=== PATIENT | male | born 1965 | race Caucasian/White ===

== ENCOUNTER 2018-08-15 20:12 | Inpatient (IN) | payer MEDICAID, OTHER ==
[~2018-08-15] VITALS: Ht 152.4 cm; Wt 96.4 kg
[~2018-08-15 20:12] MED LIST: ADV500INH INH; ALBU17IN INH; ASPI-1 PO; FURO40TA2 PO; LISI-1046 PO; SIMV20TA2 PO; SYNT25TA PO; TIOT18INH INH; TOPA50TA8 PO; VICT18IN SC; ZETI10TA30 PO
[2018-08-15] MEDS ORDERED: NOREPINEPHRINE 4 MG/4 ML AMP As Ordered ONE (21:51)
[2018-08-15 21:57] VITALS: BP 159/73
[2018-08-15 22:00] VITALS: O2SAT 88
[2018-08-15] MEDS ORDERED: NOREPINEPHRINE BITARTRATE 8 MG in D5W 492 ML IV SCH (22:00)
[2018-08-15 22:14] VITALS: BP 143/65
[2018-08-15 22:30] VITALS: BP 151/82
[2018-08-15] MEDS ORDERED: INCR1INH INH (22:38)
[2018-08-15] MEDS ORDERED: AIRD1INH2 INH (22:38)
[2018-08-15] MEDS ORDERED: LEVO25TA5 PO (22:38)
[2018-08-15] MEDS ORDERED: PACE200T PO (22:38)
[2018-08-15] MEDS ORDERED: ALBU83IN INH (22:38)
[2018-08-15] MEDS ORDERED: TORS20TA2 PO (22:38)
[2018-08-15] MEDS ORDERED: CARV3.12 PO (22:38)
[2018-08-15] MEDS ORDERED: ASPI81TA26 PO (22:38)
[2018-08-15] MEDS ORDERED: ATOR1TAB21 PO (22:38)
[2018-08-15] MEDS ORDERED: LISI-1046 PO (22:38)
[2018-08-15] MEDS ORDERED: VENTAER INH (22:38)
[2018-08-15] MEDS ORDERED: TOPI50TA9 PO (22:38)
[2018-08-15 22:45] LABS: BASO % 0.2 % (0.0-1.0); HEMATOCRIT 45.5 % (42.0-52.0); HEMOGLOBIN 13.8 g/dl (13.5-17.5); LYMPH # 0.4 10^3/uL (1.5-4.5); LYMPH % 3.9 % (24.0-44.0); MEAN CORPUSCULAR HEMOGLOBIN 26.6 pg (27.0-33.0); MEAN CORPUSCULAR HGB CONC 30.3 g/dl (32.0-36.5); MEAN CORPUSCULAR VOLUME 87.7 fl (80.0-96.0); MONO # 0.7 10^3/uL (0.0-0.8); MONO % 6.5 % (0.0-5.0); NEUTROPHILS # 9.9 10^3/uL (1.8-7.7); NEUTROPHILS % 88.5 % (36.0-66.0); PLATELET COUNT, AUTOMATED 271 10^3/uL (150-450); RED BLOOD COUNT 5.19 10^6/uL (4.30-6.10); WHITE BLOOD COUNT 11.2 10^3/uL (4.0-10.0)
[2018-08-15] MEDS ORDERED: VITA10002 PO (22:46)
--- NOTE | 2018-08-15 22:52 | HPEPDOC ---
General Date of Admission August 15, 2018 at 21:45 Chief Complaint The patient is a 53-year-old male admitted with a reason for visit of Acute Res piratory Failure. Source: RN/, Old records History of Present Illness Mr. Tijerina is a 53 years old man with severe cardiomyopathy with EF 15% as of 2014, s/p pacemaker/AICD. I spoke with Dr. Solis who gave me report on the patient. Pt presented to [facility] ER today with c/o SOB. Apparently the pt was not feeling well for the past couple of week. In the ER, pt was in severe respiratory distress; he had respiratory arrest/ cardiac arrest; required CPR for one minute and received Epi. He was intubated. He was given Rocephin, Zithromax and Vanco for presumed dx of pneumonia-related ARDS. On arrival to ICU here, pt was unresponsive; hemodynamically stable. STAT CXR showed pulmonary edema and significant cardiomegaly. A STAT Echo showed EF 10%, LV size 8.5cm (2014 echo EF 15%, LV size 7.2cm). Hx is not very clear. In June 2014 he was admitted here for CHF, and transferred to [facility] for AICD placement. Limited info obtained from pt's cousin who reports pt having exercise limitation, but otherwise fairly functional, such as able to take care of himself, do grocery and perform daily chores. Pt lives in [facility]. Unsure who pt follows with for his cardiac problem. Home Medications Scheduled Amiodarone Hcl (Pacerone) 200 Mg Tablet, 200 MG PO DAILY, (Reported) Aspirin (Aspirin EC) 81 Mg Tablet.dr, 81 MG PO DAILY, (Reported) Atorvastatin Calcium (Atorvastatin Calcium) 20 Mg Tablet, 20 MG PO DAILY, (Reported) Carvedilol (Carvedilol) 3.125 Mg Tablet, 3.125 MG PO BID, (Reported) Cyanocobalamin (Vitamin B-12) (Vitamin B-12) 1,000 Mcg Tablet, 1,000 MCG PO DAILY, (Reported) Fluticasone Propion/Salmeterol (Airduo Respiclick 113-14 Mcg) 1 Each Aer.pow.ba, 1 PUFF INH BID, (Reported) Levothyroxine Sodium (Levothyroxine Sodium) 25 Mcg Tablet, 25 MCG PO DAILY, ( Reported) Lisinopril (Lisinopril) 2.5 Mg Tablet, 2.5 MG PO DAILY, (Reported) Topiramate (Topiramate) 50 Mg Tablet, 50 MG PO BID, (Reported) Torsemide (Torsemide) 20 Mg Tablet, 20 MG PO DAILY, (Reported) Umeclidinium [place] (Incruse Ellipta) 62.5 Mcg Blst.w.dev, 1 PUFF INH DAILY, (Reported) Scheduled PRN Albuterol Sulf (Albuterol Sulfate) 2.5 Mg/3 Ml Vial.neb, 2.5 MG INH Q4H PRN for SHORTNESS OF BREATH, (Reported) Albuterol Sulfate (Ventolin Hfa) 18 Gm Hfa.aer.ad, 2 PUFF INH Q4H PRN for wheezing, (Reported) Allergies Coded Allergies: No Known Allergies (Unverified , 04/20/14) Past Medical History Medical History 1. Severe Dilated Cardiomyopathy, Systolic Heart Failure, EF 15-20% as of echo from 2014, s/p AICD, Pacemaker 2. DM (?) 3. COPD 4. PVD 5. Hypothyroidism 6. HLD 7. Morbid Obesity 8. Diverticulitis Surgical History Right eye cataract surgery, Colonoscopy, Cardiac Cath, Pacemaker/AICD placement Family History Significant Family History: Cancer, Diabetes, Heart disease (CHF) Social History * Smoker: former Smoker Alcohol: Denies Drugs: denies A-FIB/CHADSVASC A-FIB History Current/History of A-Fib/PAF?: No Review of Systems Other systems Unable to obtain because pt is intubated and sedated Physical Examination General Exam: Positive: Other (unresposnive to pain; no gag reflex) Eye Exam: Positive: PERRLA ENT Exam: Positive: Atraumatic Neck Exam: Positive: Supple Chest Exam: Positive: Rales (diffuse) Heart Exam: Positive: Rate Normal, Regular Rhythm, Other (pouding heart beat) Telemetry: Positive: Other Telemetry: (paced rhythm) Abdomen Exam: Positive: Normal bowel sounds, Soft Extremity Exam: Positive: Edema (1+ edema on both legs), Normal pulses Skin Exam: Negative: Rash, Breakdown Vital Signs Vital Signs Date Time Temp Pulse Resp B/P (MAP) Pulse Ox O2 Delivery O2 Flow Rate FiO2 08/15/18 22:30 92 16 151/82 (105) 86 95.0 08/15/18 22:14 95 08/15/18 21:57 96.4 Laboratory Data Labs 24H Laboratory Tests 2 08/15/18 22:37: Immature Granulocyte % (Auto) 0.9, White Blood Count 11.2H, Red Blood Count 5.19, Hemoglobin 13.8, Hematocrit 45.5, Mean Corpuscular Volume 87.7, Mean Corpuscular Hemoglobin 26.6L, Mean Corpuscular Hemoglobin Concent 30.3L, Red Cell Distribution Width 14.5, Platelet Count 271, Neutrophils (%) (Auto) 88.5H, Lymphocytes (%) (Auto) 3.9L, Monocytes (%) (Auto) 6.5H, Eosinophils (%) (Auto) 0.0, Basophils (%) (Auto) 0.2, Neutrophils # (Auto) 9.9H, Lymphocytes # (Auto) 0.4L, Monocytes # (Auto) 0.7, Eosinophils # (Auto) 0.0, Basophils # (Auto) 0.0, Nucleated Red Blood Cells % (auto) 0.0 08/15/18 22:39: CBC/BMP Laboratory Tests 08/15/18 22:37 Red Blood Count 5.19, Mean Corpuscular Volume 87.7, Mean Corpuscular Hemoglobin 26.6 L, Mean Corpuscular Hemoglobin Concent 30.3 L, Red Cell Distribution Width 14.5, Neutrophils (%) (Auto) 88.5 H, Lymphocytes (%) (Auto) 3.9 L, Monocytes (%) (Auto) 6.5 H, Eosinophils (%) (Auto) 0.0, Basophils (%) (Auto) 0.2, Neutrophils # (Auto) 9.9 H, Lymphocytes # (Auto) 0.4 L, Monocytes # (Auto) 0.7, Eosinophils # (Auto) 0.0, Basophils # (Auto) 0.0 Microbiology Microbiology 08/15/18 Respiratory Virus Panel (PCR) ([facility]), Received Pending Assessment/Plan Decompensated Heart failure with severe Pulmonary Edema, Underlying Severe Dilated Cardiomyopathy, Severe Systolic Dysfunction EF 10%, Acute Hypoxic and Hypercapnic Respiratory Failure, Respiratory Acidosis - Admit to ICU - Media Assistant Dr. Gonzales and Cardiology Dr. Raymond Consults; Discussed with both - IV Lasix, IV Dobutamine low dose; Continue home meds: Coreg and Amiodarone - Lung protective ventilator - Monitor I/O, daily wt, multi-organ function - Trend troponins r/o AMI COPD - Vent support; nebs prn Hypothyroidism - home dose of synthroid Questionable hx/o DM, previously recorder in the chart, not on med at home, HbA1C 5.4 - Monitor blood sugar At 6:30 am pt remains unresponsive; likely due to hypoxic brain injury. Aggressive cardiac care alone may not be very helpful if neuro status doesn't improve. Plan / VTE VTE Prophylaxis Ordered?: Yes DEEPIKA GATES MD August 15, 2018 22:52
[2018-08-15] MEDS ORDERED: PROPOFOL 1,000 MG in APPROPRIATE DILUENT 1 EA IV SCH (22:55)
[2018-08-15 22:56] LABS: INR 1.11; PARTIAL THROMBOPLASTIN TIME 31.5 SECONDS (25.4-37.6); PROTHROMBIN TIME 14.4 SECONDS (12.1-14.4)
[2018-08-15 23:00] VITALS: BP 149/71
[2018-08-15] MEDS ORDERED: MORPHINE 4 MG/ML 1ML VIAL/SYRINGE (J2270) IV PRN (23:00)
[2018-08-15] MEDS ORDERED: ALBUTEROL SULFATE 2.5 MG/0.5 ML INH NEB SOLN NEB PRN (23:00)
[2018-08-15] MEDS ORDERED: LORazepam 2 MG/ML VIAL (J2060) IV PRN (23:00)
[2018-08-15 23:04] LABS: HEMOGLOBIN A1c 5.4 %
[2018-08-15 23:11] LABS: ALBUMIN 3.3 GM/DL (3.2-5.2); ALT/SGPT 67 U/L (12-78); BILIRUBIN,TOTAL 0.8 MG/DL (0.2-1.0); BLOOD UREA NITROGEN 19 MG/DL (7-18); CALCIUM LEVEL 7.5 MG/DL (8.5-10.1); CARBON DIOXIDE LEVEL 27 MEQ/L (21-32); CHLORIDE LEVEL 108 MEQ/L (98-107); CPK CREATINE PHOSPHOKINASE 95 U/L (39-308); CREATININE FOR GFR 1.11 MG/DL (0.70-1.30); GLOMERULAR FILTRATION RATE > 60.0 (>56); GLUCOSE, FASTING 199 MG/DL (70-100); MB/CK RELATIVE INDEX 2.84 (< OR =4); NT-PRO BNP 12711 PG/ML (<125); POTASSIUM SERUM 3.3 MEQ/L (3.5-5.1); SODIUM LEVEL 141 MEQ/L (136-145); TROPONIN I 0.13 NG/ML (< 0.10)
[2018-08-15 23:13] LABS: ABG BASE EXCESS -6.8 (-2.0-2.0); ABG HCO3 24.5 MEQ/L (22.0-26.0); ABG O2 SATURATION 90.5 % (95.0-99.0); ABG PARTIAL PRESSURE O2 75.2 mmHg (75.0-100.0); ABG STANDARD HCO3 18.9 MEQ/L (22.0-26.0); ABG TOTAL CO2 26.9 MEQ/L (22.0-29.0)
[2018-08-15 23:15] LABS: ABG pH (ARTERIAL) 7.112 UNITS (7.350-7.450)
[2018-08-15] MEDS ORDERED: ALBUTEROL 90 MCG/ACT 8GM HFA INHALER INH PRN (23:15)
[2018-08-15] MEDS ORDERED: ASPIRIN 325 MG TAB NG ONE (23:15)
[2018-08-15 23:16] LABS: ABG PARTIAL PRESSURE CO2 78.6 mmHg (35.0-45.0)
[2018-08-15 23:18] LABS: ALBUMIN 3.3 GM/DL (3.2-5.2); BILIRUBIN,DIRECT 0.3 MG/DL (0.0-0.2); BILIRUBIN,TOTAL 0.8 MG/DL (0.2-1.0); CHOLESTEROL RISK RATIO 1.796 (<5); THYROID STIMULATING HORMONE 2.24 uIU/ML (0.358-3.740); TOTAL PROTEIN 6.7 GM/DL (6.4-8.2)
[2018-08-15] MEDS ORDERED: DOBUTamine HCL 500,000 MCG in APPROPRIATE DILUENT 1 EA IV SCH (23:30)
[2018-08-15] MEDS ORDERED: MIDAZOLAM INJ 2 MG/2 ML VIAL (J2250) IV STA (23:50)
[2018-08-15] MEDS ORDERED: MIDAZOLAM INJ 2 MG/2 ML VIAL (J2250) As Ordered ONE (23:52)
[2018-08-16] VITALS (153 sets, daily range): BP systolic -2–134; BP diastolic -2–67; O2SAT 90–96
[2018-08-16] MEDS ORDERED: FUROSEMIDE 100 MG/10 ML VIAL (J1940) IV SCH
[2018-08-16] MEDS: FUROSEMIDE injection 250 MG in D5W 225 ML IV SCH ×2 (00:01→12:57)
[2018-08-16] MEDS ORDERED: MIDAZOLAM HCL 50 MG in D5W 40 ML IV SCH (00:15)
[2018-08-16] MEDS ORDERED: POTASSIUM CHLORIDE 10 MEQ SR TABLET PO ONE (00:15)
[2018-08-16] MEDS: IPRATROPIUM 0.5MG/ALBUTEROL 2.5MG INH SOL UD 3ML (DUONEB)(J7620) NEB SCH ×4 (00:25→13:11)
[2018-08-16 01:15] LABS: ABG BASE EXCESS -6.5 (-2.0-2.0); ABG HCO3 23.7 MEQ/L (22.0-26.0); ABG O2 SATURATION 93.1 % (95.0-99.0); ABG PARTIAL PRESSURE O2 80.7 mmHg (75.0-100.0); ABG STANDARD HCO3 19.1 MEQ/L (22.0-26.0); ABG TOTAL CO2 25.8 MEQ/L (22.0-29.0)
[2018-08-16 01:17] LABS: ABG PARTIAL PRESSURE CO2 68.4 mmHg (35.0-45.0); ABG pH (ARTERIAL) 7.157 UNITS (7.350-7.450)
[2018-08-16 05:12] LABS: ALBUMIN 3.2 GM/DL (3.2-5.2); ALT/SGPT 62 U/L (12-78); BILIRUBIN,TOTAL 0.9 MG/DL (0.2-1.0); BLOOD UREA NITROGEN 20 MG/DL (7-18); CALCIUM LEVEL 7.9 MG/DL (8.5-10.1); CARBON DIOXIDE LEVEL 28 MEQ/L (21-32); CHLORIDE LEVEL 108 MEQ/L (98-107); CHOLESTEROL LEVEL 108 MG/DL (< 200); CPK CREATINE PHOSPHOKINASE 68 U/L (39-308); CREATININE FOR GFR 1.25 MG/DL (0.70-1.30); GLOMERULAR FILTRATION RATE > 60.0 (>56); GLUCOSE, FASTING 166 MG/DL (70-100); LDH LACTATE DEHYDROGENASE 300 U/L (87-241); PHOSPHORUS LEVEL 5.3 MG/DL (2.5-4.9); POTASSIUM SERUM 3.6 MEQ/L (3.5-5.1); SODIUM LEVEL 143 MEQ/L (136-145); TOTAL PROTEIN 7.1 GM/DL (6.4-8.2); TRIGLYCERIDES LEVEL 61 MG/DL (<150)
[2018-08-16 06:11] LABS: ABG BASE EXCESS -5.8 (-2.0-2.0); ABG HCO3 24.8 MEQ/L (22.0-26.0); ABG O2 SATURATION 96.2 % (95.0-99.0); ABG PARTIAL PRESSURE O2 97.2 mmHg (75.0-100.0); ABG STANDARD HCO3 19.7 MEQ/L (22.0-26.0); ABG TOTAL CO2 27.1 MEQ/L (22.0-29.0)
[2018-08-16 06:13] LABS: ABG pH (ARTERIAL) 7.146 UNITS (7.350-7.450)
[2018-08-16 06:14] LABS: ABG PARTIAL PRESSURE CO2 73.6 mmHg (35.0-45.0)
[2018-08-16 06:47] LABS: MB/CK RELATIVE INDEX 4.12 (< OR =4)
--- NOTE | 2018-08-16 06:47 | ECHO ---
DATE OF PROCEDURE: 08/15/2018 REFERRING PHYSICIAN: Gamal Gonzales MD INDICATION: Status post cardiac arrest. HEIGHT: 4 feet 11 inches. WEIGHT: 209 pounds, 7 ounces. 2D MEASUREMENTS: Aortic root 3.4 cm Left ventricle diastole 8.5 cm Ventricular septum 1.19 cm Posterior wall 1.20 cm Left atrium 4.6 cm Inferior vena cava 2.0 cm with essentially no respiratory variation. DOPPLER MEASUREMENTS: Aortic valve velocity 248 cm/s LVOT velocity 118 cm/s LVOT VTI 25.8 cm No aortic regurgitation. No mitral regurgitation. No tricuspid regurgitation. No pulmonic regurgitation. Pulmonary artery systolic pressure 39 mmHg. MITRAL ANNULAR TISSUE DOPPLER: E prime lateral 3.68 cm/s E prime septal 6.74 cm/s DESCRIPTION: Rhythm appeared to be sinus, P-synchronous ventricular paced rhythm. Image quality was moderately technically difficult. This was a 2D, M mode, color flow Doppler and pulse wave Doppler examination, and included mitral annular tissue Doppler. CONCLUSIONS: 1. Severely dilated left ventricle with left ventricular wall thicknesses at or near the upper limits of normal. Severe global LV hypokinesis. Severe reduction in LV systolic function. LVEF 10% by visual estimate. 2. Probably normal right ventricle size and systolic function. 3. Moderate left atrial dilatation. 4. Difficult to assess LV diastolic function due to complete fusion of the early rapid filling phase and atrial filling phase at 96 beats per minute. 5. Moderate aortic valve sclerosis of a three-cuspid aortic valve. Probably mild aortic stenosis. No aortic regurgitation. 6. Suggestive of mild elevation of pulmonary artery systolic pressure. 7. Inferior vena cava plethora. Suggestive of elevated central venous pressure at least 20 mmHg. 8. Very small pericardial effusion. No diastolic chamber collapse. 9. Mild mitral annular calcification. No mitral regurgitation. Results of this study were communicated verbally to Dr. Gianna Gonzales. [facility]
[2018-08-16] MEDS ORDERED: ADVAIR HFA 230/21MCG INHALER INH SCH (08:00)
--- NOTE | 2018-08-16 08:09 | REP ---
Portable chest x-ray: Single view. History: Intubated patient. Comparison study: August 15, 2018. Findings: Endotracheal tube is seen in good position at the level of proximal clavicles. An NG tube enters left upper quadrant. A delayed pacemaker is noted in the right heart via the left side. Moderate cardiomegaly is again observed. Pulmonary edema pattern shows some improvement. Interstitial edema persists and vascular congestion is again noted. The vessels are a little more distinct. There is less fissural thickening. Impression: Some improvement noted and interstitial pulmonary edema pattern. Cardiomegaly with pacemaker. Electronically Signed by Hugh Escobar MD 08/16/2018 08:00 A
--- NOTE | 2018-08-16 08:21 | REP ---
CT STUDY OF THE BRAIN WITHOUT CONTRAST: HISTORY: Unresponsiveness. No comparison study. FINDINGS: Preliminary digital chief lending officer radiograph is unremarkable. Bone window settings demonstrate an intact bony calvarium. No skull fracture or bony destructive lesion is seen. There are air-fluid levels in the right maxillary and sphenoid sinuses. Partial opacification is seen in several ethmoid air cells. No facial fracture is appreciated. No intraorbital abnormality is seen. On soft tissue window settings, the lateral, third, and fourth ventricles are normal in size and position. Galeana-white differentiation pattern is intact above and below the tentorium. There is no evidence of intracranial hemorrhage, infarct, mass, extra-axial fluid collection, or midline shift. IMPRESSION: Paranasal sinus changes with some fluid levels in the sphenoid and right maxillary sinus. Otherwise negative CT brain. Electronically Signed by Hugh Escobar MD 08/16/2018 09:51 A
--- NOTE | 2018-08-16 08:31 | REP ---
Portable chest x-ray: Single view 10:46 p.m. film: History: Recheck tube after reintubation. Comparison study June 15, 2014. Findings: Endotracheal tube is seen in good position just above the transverse aorta. An NG tube enters left upper quadrant of the abdomen. A multi lead pacemaker is seen in the heart via the left side. Moderate to marked cardiomegaly is observed. There is some fissural thickening noted on the right. Eight moderate diffuse interstitial and alveolar pulmonary edema pattern is seen in the lung parenchyma. Electronically Signed by Hugh Escobar MD 08/16/2018 08:22 A
--- NOTE | 2018-08-16 08:38 | REP ---
PORTABLE CHEST X-RAY: Single view. HISTORY: Intubation patient. COMPARISON STUDY: June 15, 2014. FINDINGS: Endotracheal tube is seen in good position just below the proximal clavicles. An NG tube enters left upper quadrant. A multi-lead pacemaker is again noted in the enlarged heart via the left side. There is diffuse interstitial and alveolar pulmonary edema pattern moderate to severe. Parenchymal opacity is more prominent on the right than the left. No pleural effusion is seen. IMPRESSION: Diffuse pulmonary edema pattern. Cardiomegaly. Endotracheal and nasogastric tubes in place. Electronically Signed by Hugh Escobar MD 08/16/2018 09:51 A
[2018-08-16] MEDS ORDERED: NOREPINEPHRINE 4 MG/4 ML AMP As Ordered ONE (08:44)
[2018-08-16] MEDS ORDERED: TOPIRAMATE (TopAMAX) 25 MG TAB PO SCH (09:00)
[2018-08-16] MEDS ORDERED: ENOXAPARIN 40 MG/0.4 ML SYRINGE (J1650) SC SCH (09:00)
[2018-08-16] MEDS ORDERED: PANTOPRAZOLE 40MG INJ (PROTONIX) (C9113) IV SCH (09:00)
[2018-08-16] MEDS ORDERED: POTASSIUM CHLORIDE 10 MEQ SR TABLET PO SCH (09:00)
[2018-08-16] MEDS ORDERED: AMIODARONE 200 MG TAB (PACERONE) PO SCH (09:00)
[2018-08-16] MEDS ORDERED: ASPIRIN 81 MG CHEW TABLET PO SCH (09:00)
[2018-08-16] MEDS ORDERED: CARVedilol 3.125 MG TAB PO SCH (09:00)
[2018-08-16] MEDS ORDERED: LEVOTHYROXINE 25MCG TABLET (0.025MG) PO SCH (09:00)
[2018-08-16] MEDS ORDERED: LISINOPRIL *2.5 MG* TAB PO SCH (09:00)
[2018-08-16] MEDS ORDERED: POTASSIUM CHLORIDE 10% LIQ 20 MEQ/15 ML UDC PO SCH (09:00)
[2018-08-16] MEDS ORDERED: ATORVASTATIN 20 MG TAB PO SCH (09:00)
[2018-08-16] MEDS ORDERED: CHLORHEXIDINE GLUCONATE 0.12 % 15ML UDC (PERIDEX ORAL RINSE) MT SCH (09:00)
[2018-08-16] MEDS ORDERED: ASPIRIN 81 MG ENTERIC TAB PO SCH (09:00)
[2018-08-16 09:10] LABS: BASO % 0.2 % (0.0-1.0); HEMATOCRIT 49.1 % (42.0-52.0); HEMOGLOBIN 14.7 g/dl (13.5-17.5); LYMPH % 1.5 % (24.0-44.0); MEAN CORPUSCULAR HEMOGLOBIN 26.7 pg (27.0-33.0); MEAN CORPUSCULAR HGB CONC 29.9 g/dl (32.0-36.5); MEAN CORPUSCULAR VOLUME 89.3 fl (80.0-96.0); MONO # 0.7 10^3/uL (0.0-0.8); MONO % 4.7 % (0.0-5.0); NEUTROPHILS # 14.1 10^3/uL (1.8-7.7); NEUTROPHILS % 93.2 % (36.0-66.0); PLATELET COUNT, AUTOMATED 297 10^3/uL (150-450); WHITE BLOOD COUNT 15.1 10^3/uL (4.0-10.0)
[2018-08-16] MEDS ORDERED: PILL CRUSHER/CUTTER 1 EACH XX PRN (09:15)
[2018-08-16 09:30] LABS: LYMPH # 0.2 10^3/uL (1.5-4.5)
--- NOTE | 2018-08-16 09:35 | CR ---
DATE OF CONSULTATION: 08/16/2018 I was asked by Dr. Cabello to emergently evaluate Mr. Tijerina for acute hypoxemic respiratory failure. Mr. iTjerina is a 53-year-old male whose past medical history is most significant for cardiomyopathy with global hypokinesia who presented to the [facility] emergency room last evening, generally feeling unwell. In talking to his cousin, who he sees at least once a week, he felt as if he may have had a cold for the past couple of weeks or so. He was getting better. His cousin notes he had a cough and nasal congestion, but he thought the nasal congestion was allergies. It is unclear as to why tonight he decided to the emergency department. Apparently when he was there he was talking to them and then suddenly went unresponsive. CPR was started and reports were that it was done for 1 minute and he was given 1 mg of epinephrine. I did not get a report on the specific rhythm, but apparently after that intervention, he had sinus rhythm with a perfusing pulse. He was intubated but it was a difficult intubation and 3-4 attempts were made. He was agitated and he was given sedation and a dose of rocuronium, reportedly 2.5 mg/kg before being transported to [facility]. He was also hypotensive and was on a Levophed drip upon arrival. I was able to pull up his [place] chest x-ray from home and he had a markedly enlarged cardiac silhouette and bilateral infiltrates consistent with pulmonary edema. Given this information, a stat echocardiogram was done on arrival, which is was dictated by Dr. Carlson, but in essence showed significant LV dilatation at 8.5 cm, global hypokinesia with an ejection fraction of 10% and a dilated SVC with a high CVP estimated around 20. When he arrived here, he had a tube leak and had likely a ruptured cuff. He therefore was reintubated over the [place] successfully. Upon reintubation, he had the anticipated pink frothy secretions. Hemodynamically he has not triggered the vent once and he does not respond to stimuli. A train of four was done and there was no response. In speaking to his cousin, he is very intelligent. His cousin feels he is very active. It is difficult to get a good idea on his true exercise tolerance. It sounds as if he may be able to walk 50 feet and then will stop to talk, but his cousin questions as to whether that may be to catch his breath. His cousin reports he can climb two flights of stairs. However, he also walks holding onto a cart when he goes through a grocery store. He also sleeps in a recliner. His cousin does not know whether he has obstructive sleep apnea (GEREMIAS). ALLERGIES: No known drug allergies. MEDICATIONS: - amiodarone 200 mg by mouth daily - aspirin 81 mg by mouth daily - atorvastatin 20 mg by mouth daily - carvedilol 3.125 mg by mouth twice a day - vitamin B12 1000 mcg by mouth daily - AirDuo RespiClick 113-14 one puff twice a day - levothyroxine 25 mcg by mouth daily - lisinopril 2.5 mg by mouth daily - topiramate 50 mg by mouth twice a day - torsemide 20 mg by mouth daily - INCRUSE one puff daily - albuterol nebulization every 4 hours as needed - albuterol HFA two puffs every 4 hours as needed PAST MEDICAL HISTORY: 1. Severely dilated cardiomyopathy, systolic heart failure with an ejection fraction (EF) of 15-20% as of echocardiogram 2015a status post dual AICD and pacemaker placed in 2015. 2. Diabetes mellitus. 3. Chronic obstructive pulmonary disease (COPD) per chart. 4. Peripheral vascular disease. 5. Hypothyroidism. 6. Dyslipidemia. 7. Morbid obesity. 8. Diverticulitis. 9. Status post right eye cataract surgery. 10. History of tobacco usage. FAMILY HISTORY: Significant for cancer, diabetes and heart disease. SOCIAL HISTORY: Mr. Tijerina does not work. 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 He lives in a retirement center. Both his parents are . He has an estranged brother, that per his cousin, he has not spoken with in over 30 years. He has no children. He previously had a smoking history, though none since 2014 and the extent of his smoking history is not known. He does not drink alcohol. No street drug usage. REVIEW OF SYSTEMS: Unobtainable secondary to intubation. What is known is contained in the HPI. PHYSICAL EXAMINATION: GENERAL: Mr. Tijerina is intubated and synchronous with the ventilator. He is not overbreathing the ventilator. VITAL SIGNS: Initial temperature 96.3, pulse 88, respiratory rate 16, blood pressure 143/65. SpO2 88% on an FiO2 of 0.95. HEENT: Anicteric, pupils 2-3 mm, PERRL. Nares: Patent bilaterally. Moist mucosa. Oropharynx ET tube and OG tube in place. NECK: Supple, trachea is midline. Unable to appreciate JVP secondary to body habitus. LYMPHS: Without cervical or supraclavicular lymphadenopathy. CHEST: Normal shape. LUNGS: Symmetric excursion, good air entry. No wheeze or rhonchi. Bilateral crackles. Normal I:E. CARDIOVASCULAR: Regular rate and rhythm with a normal S1, S2. No murmur, rub or gallop appreciated. Rhythm is paced on the monitor. ABDOMEN: Diminished bowel sounds. Soft, nondistended. No hepatosplenomegaly or masses appreciated. EXTREMITIES: Warm and well perfused. Normal capillary refill. Palpable pedal pulses bilaterally, without cyanosis. Trace pretibial edema bilaterally. NEUROLOGIC: No spontaneous movements. He is not overbreathing the ventilator. He does not withdraw to pain. LABORATORY DATA: CBC shows a hemoglobin of 13.5, hematocrit of 45.5, platelet count 271,000, white blood cell count 11,200 with a differential of 89% neutrophils, 4% lymphocytes, and 7% monocytes. Chemistries show sodium of 141, potassium 3.3, chloride 108, bicarbonate 27, anion gap 6, BUN 19, creatinine 1.1, glucose 199, hemoglobin A1c 5.4, lactic acid 1.1, calcium 7.5, magnesium 2.0, total bilirubin 0.8, direct bilirubin 0.3, AST 76, ALT 68, alkaline phosphatase 122, CK 95, CK-MB 3, troponin I 0.13, BNP 36856, total protein 6.7, albumin 3.3, triglycerides 65, total cholesterol 115, LDL 38, TSH 2.24. INR was 1.11. Arterial blood gas on [facility] with a tidal volume of 350, rate 16, PEEP of 10, and an FiO2 of 0.95 was 7.12, 79, 75.2, with a measured saturation of 91% and a base excess of -6.8. I reviewed his chest x-ray which showed a markedly enlarged cardiac silhouette, with likely normal pulmonary vascular shadows. There were diffuse infiltrates consistent with pulmonary edema. ET tube is perhaps 5 cm above the maite, but his neck is extended. IMPRESSION: 1. Acute hypoxemic respiratory failure secondary to pulmonary edema. 2. Cardiopulmonary arrest. 3. Severe cardiomyopathy with an EF of approximately 10%. 4. Diabetes mellitus per chart. 5. COPD per chart. 6. Hypothyroidism. 7. Hypertension. 8. Dyslipidemia. RECOMMENDATIONS: 1. Will continue mechanical ventilator with the lung protective strategy. His 6 mL per kilo tidal volume is 300 mL and will try to work to that level. We will also aim to keep his plateau pressure less than 30. 2. We will allow permissive hypercapnia and permissive hypoxemia. 3. Will diurese as tolerated. He is being placed on a Lasix drip. 4. I am very concerned that he is still paralyzed. I had a train of four done and he has no response. I question if he may have been given a higher dose of paralytic than was reported. We did call the emergency department to try to determine what the actual milligrams given and what was the actual number of mL given. The nurse who administered it had already left. Based on the findings, I question if he has not been inadvertently given a higher dose. With the half life, his paralytics should have long ago been worn off. If he did have an incidental high dose given it may take longer to wear off. 5. As I am concerned he is still paralyzed, I am going to place him on a Versed drip at 2 mg per hour until he shows movement by overbreathing the ventilator or spontaneous movements. At that time, I will reassess the need for the Versed rip and whether he would be better off on a different agent or an as needed sedation depending upon how he is doing. I wonder if it would be appropriate to continue the Versed drip or would it be more appropriate to change to a different agent such as Diprivan. That decision will be made at the time that he is not paralyzed. I have no other explanation for these findings. 6. We do not know a lot about his diabetes mellitus, would suggest that he be on a sliding scale insulin, particularly as the drips that he is receiving are mixed in dextrose. 7. Would consider starting dobutamine at 2.5 mg/kg per minute and would not titrate. 8. He appears to have end stage heart disease. It is difficult for me to assess his [place] state classification as I get varying history. However, based on his echocardiogram report, I suspect he has end stage and given his young age, may want to spoke with [facility] or [place] regarding possible evaluation for left ventricular assist device and/or heart transplantation. 9. We will attempt to obtain the healthcare proxy information. His cousin reports that he did fill that information out, but his cousin does not have a copy of that document and is not certain where it is. We may have to get some guidance in terms of who can make decisions given that his brother has been estranged for years and per the cousin, nobody knows where he lives. Prognosis is guarded. Critical care time was 2 hours and 45 minutes.
[2018-08-16 10:36] LABS: ABG HCO3 24.6 MEQ/L (22.0-26.0); ABG O2 SATURATION 96.2 % (95.0-99.0); ABG PARTIAL PRESSURE O2 86.9 mmHg (75.0-100.0); ABG STANDARD HCO3 21.1 MEQ/L (22.0-26.0); ABG TOTAL CO2 26.5 MEQ/L (22.0-29.0)
[2018-08-16 10:39] LABS: ABG pH (ARTERIAL) 7.225 UNITS (7.350-7.450)
[2018-08-16 10:40] LABS: ABG PARTIAL PRESSURE CO2 60.9 mmHg (35.0-45.0)
[2018-08-16] MEDS ORDERED: MIDAZOLAM HCL 100 MG in D5W 80 ML IV SCH (12:00)
[2018-08-16] MEDS ORDERED: NOREPINEPHRINE BITARTRATE 8 MG in D5W 492 ML IV SCH (13:00)
--- NOTE | 2018-08-16 13:43 | REP ---
Portable chest x-ray: Single view. 01:01 p.m. film. History: Line placement. Comparison study: August 16, 2018 06:48 a.m.. Findings: Endotracheal tube remains in good position at the level of proximal clavicles. NG tube enters the left upper quadrant and terminates in the gastric fundus region. A right internal jugular central venous line has been inserted. Its tip is in the expected location of the superior vena cava. There is no evidence of pneumothorax. Cardiomegaly is again observed with multi lead pacemaker. Vascular congestion and some interstitial edema is again seen. Impression: Right IJ line in place. No evidence of pneumothorax. Electronically Signed by Hugh Escobar MD 08/16/2018 01:35 P
--- NOTE | 2018-08-16 14:02 | CR ---
DATE OF CONSULTATION: 08/16/2018 REFERRING PHYSICIAN: Dr. Fran Cabello REASON FOR CONSULTATION: Acute on chronic systolic and diastolic heart failure, cardiogenic shock, dilated cardiomyopathy. HISTORY OF PRESENT ILLNESS: Ramakrishna Tiejrina is a 53-year-old man, who is presently intubated, ventilated, sedated, and unable to provide any history for me. History is obtained from the available medical records in the EMR, as well as discussion by phone with Dr. Gonzales and Dr. Cabello. This patient is known to have a long-standing cardiomyopathy dating back to at least 2014 with chronic systolic had diastolic heart failure. It is unclear to me at this time whether his dilated cardiomyopathy is a nonischemic dilated cardiomyopathy or an ischemic dilated cardiomyopathy. Patient is status post biventricular implantable cardioverter-defibrillator (ICD) placed in 2014. He has hypercholesterolemia and morbid obesity. He presented to [facility] emergency room last evening feeling generally unwell. Apparently, he had been feeling unwell for at least a week but was getting rapidly worse prior to his presentation at [facility]. He, yesterday, suddenly went unresponsive, and he received cardiopulmonary resuscitation (CPR) for about a minute and received 1 mg of epinephrine. He was placed on norepinephrine intravenous (IV) due to hypotension and was transported to [facility] where he was admitted to the intensive care unit (ICU). He was found to be in pulmonary edema. He was reintubated at [facility] and admitted to the ICU. A detailed cardiac symptom status could not be determined as the patient is presently intubated, ventilated, and sedated. No known adverse drug reactions. MEDICATIONS PRIOR TO ADMISSION: - albuterol 2.5 mg every 4 hours as needed - amiodarone 200 mg daily - aspirin 81 mg daily - atorvastatin 20 mg daily - carvedilol 3.125 mg twice a day - vitamin B12 1000 mcg daily - AirDuo on inhalation twice a day - levothyroxine 25 mcg daily - lisinopril 2.5 mg daily - topiramate 50 mg twice a day - torsemide 20 mg daily - Incruse Ellipta one inhalation daily PATIENT'S CURRENT MEDICATIONS IN HOSPITAL: Consist of; - albuterol nebulizer 2.5 mg every 2 hours as needed and every 4 hours - amiodarone 200 mg daily - aspirin 81 mg daily - atorvastatin 20 mg daily - carvedilol 3.125 mg twice a day - dobutamine 2.5 mcg/kg IV - Lovenox 40 mg subcu daily - furosemide 20 mg/h IV - levothyroxine 25 mcg by mouth daily - morphine 2 mg IV every 2 hours as needed for pain - Protonix 40 mg IV daily - potassium chloride 40 mEq by mouth daily - propofol OTHER PAST MEDICAL AND SURGICAL HISTORY: Dilated cardiomyopathy, chronic systolic and diastolic heart failure, morbid obesity, hypothyroidism, vitamin B12 deficiency, chronic obstructive pulmonary disease (COPD), hyperlipidemia, diverticular disease, prior colonoscopy, previous cardiac catheterization, status post biventricular ICD in situ, prior right cataract surgery. FAMILY HISTORY: Cancer, diabetes, heart failure. SOCIAL HISTORY: Prior smoker. No alcohol. No illicit drugs. REVIEW OF SYSTEMS: Review of systems not obtainable from the patient at this time because his is intubated, ventilated, and sedated. PHYSICAL EXAMINATION: Morbidly obese, man who is presently intubated, ventilated, and sedated. He is verbally unresponsive. Height 60 inches, weight 96.4 kg, body mass index (BMI) 41.5. Temperature 97.1, pulse 101, respiratory rate 28, blood pressure 79/42, oxygen saturation 93% on FiO2 of 0.95 on a ventilator. No conjunctival pallor, scleral icterus, or xanthomas. Endotracheal tube present. Oral mucosa was moist and without pallor or cyanosis. Jugular venous pulsations were to the angle of the jaw with the patient at 30 degrees. Trachea midline. No palpable thyroid. No clubbing, nail bed cyanosis, or splinter hemorrhages. No skin lesions, skin pallor, or icterus. Curvature of the spine appears normal. Unable to assess gait or muscle strength or tone at this time because the patient is intubated, ventilated, and sedated. Respiratory expansion on the ventilator appears normal with ventilator breath. Some bibasilar crackles were present. No wheezes. Breath sound intensity was fair to both lung angelo. No palpable apex beat. No parasternal lifts, heaves, thrills, or palpable heart sounds. ICD in situ left pectoral region. First heart sounds diminished. Second heart sounds diminished. No S3 or S4 appreciated. No murmurs appreciated. Carotids were normal in volume and contour and without bruits. Unable to palpate the abdominal aorta due to abdominal obesity. No abdominal bruits. Femoral pulses were faint. Pedal pulses were faint. 1 mm pitting edema and stasis dermatitis bilaterally at mid and distal tibia level bilaterally. No varicose veins. Abdomen was obese, soft, nontender with normal bowel sounds. No hepatosplenomegaly or organomegaly. Liver span difficult to assess due to abdominal obesity. Stool for occult blood not presently indicated. Echocardiogram Doppler, 08/15/2018 was reported under separate cover. The left ventricle was severely dilated, 8.5 cm at end diastole. Severe global left ventricular (LV) systolic dysfunction with global hypokinesis. Severe reduction overall LV systolic function. Left ventricular ejection fraction (LVEF) 10% by visual estimate. Probably normal right ventricular (RV) size and systolic function. Moderate left atrial dilatation. Difficult to assess LV diastolic function due to complete fusion of the early rapid filling phase with atrial filling phase at 96 beats per minute. Moderate aortic valve sclerosis of a three-cuspid aortic valve. Probably mild aortic stenosis. No aortic regurgitation. Suggestive of mild elevation of pulmonary artery systolic pressure (39 mmHg). Inferior vena cava dilatation, suggestive of elevated central venous pressure of at least 20 mmHg. Very small pericardial effusion with no diastolic chamber collapse. Mild mitral annular calcification. No mitral regurgitation. Laboratory work, 08/16/2018, was reviewed: WBC 15.1, hemoglobin 14.7, hematocrit 49.1, platelets 297. Sodium 143, potassium 3.6, chloride 108, CO2 28, BUN 20, creatinine 1.25, estimated GFR greater than 60, glucose 166, calcium 7.9, phosphorus 5.3, total bilirubin 0.9, AST elevated at 51, ALT 62, alkaline phosphatase 105, lactate dehydrogenase elevated at 300, CPK 68, CK-MB 3.0, troponin I 0.10, total protein 7.1, albumin 3.2, triglycerides 61, total cholesterol 108. Laboratory work, 08/15/2018 was reviewed: NT-pro-BNP 12,711, triglycerides 61, total cholesterol 115, LDL 38, HDL 64, TSH 2.240. PT/INR 1.10. APTT 31.5. I have independently visualized the patient's portable semiupright chest x-ray acquired 08/15/2018 at 10:29 p.m. It shows massive cardiomegaly. Presence of a single coil ICD lead, a right atrial screw and lead in the right atrial penetration and a quadripolar coronary sinus LV lead with the ICD in situ over the left pectoral region. Pulmonary vascular redistribution is present. Interstitial and alveolar pulmonary edema present. No pneumothorax. Presence of an endotracheal tube. No ECG currently available on the present hospitalization. ASSESSMENT AND PLAN: 1. Acute on chronic systolic and diastolic heart failure. Patient has a severe dilated cardiomyopathy. It is unknown to me whether this is an ischemic or a nonischemic dilated cardiomyopathy. He has a low cardiac output state and is presently hypotensive and in cardiogenic shock and has associated cardiac pulmonary edema, both interstitial and alveolar. He is requiring inotropic support. At this point, his blood pressure is too low to be able to tolerate a beta janet, angiotensin-converting enzyme (JODIE) inhibitor, angiotensin receptor janet (ARB), or angiotensin receptor neprilysin inhibitor. Lisinopril has already been stopped. I have gone ahead and stopped the carvedilol because the patient is too decompensated and hypotensive to tolerate carvedilol. At my suggestion, he was placed on a low dose of dobutamine 2.5 mcg/kg per minute overnight and, unfortunately, that really has not helped the patient. I have taken him of the dobutamine and placed him on Levophed IV to keep the systolic blood pressure 95-110. I have discussed the case with Dr. Gonzales and also with [place] (Dr. Garcia). The plan is to transfer the patient to [facility] when a bed becomes available so the patient can be worked up for advanced heart failure care, such as left ventricle assist device. I am not optimistic that this patient will be a candidate for heart transplant due to his morbid obesity. Milrinone is not presently available on formulary at [facility]. This hospital does not provide intra-aortic balloon pump ability. Without left ventricle assist device, I think this patient's prognosis is very poor, and he is unlikely to survive snf. 2. Dilated cardiomyopathy. As per heart failure category above. 3. Status post biventricular implantable cardioverter-defibrillator (ICD) in situ. Stable. I will order an ECG. 4. Hypercholesterolemia. Lipid values are excellent. He has remained on statin therapy, which he continues. He is presently nothing by mouth. 5. Morbid obesity. Patient is presently nothing by mouth. 6. Cardiac pulmonary edema. Agree with intravenous furosemide. 7. Cardiogenic shock. As per heart failure category above.
--- NOTE | 2018-08-16 15:03 | IPNPDOC ---
Text Note Date of Service The patient was seen on 08/16/18. NOTE Subjective: Patient remains intubated, off sedation this morning. After switc pancho off sedation he was able to follow commands, opened eyes when called, squeezed fingers on command. His maternal cousin Pablito was at bed side. He said he was the HCP proxy however he could not find the HCP papers at present. Called PMD's office to see if they have the HCP paperwork however this being a saturday could not get through to them. I asked about what the pateint's wishes would have been if he was able to communicate with us. His cousin is very sure he would have wished to have been transferred to [place] and do whatever the next steps were. He was very emotional and seemed very close to the patient. 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 He used to take care of his father and uncle and once they he continued to work in the store for a few more years till it became too much for him. He thinks he probably worked till 2012. He does not have any psychiatric history. Objective: Vitals As below GENERAL: Patient intubated but able to open his eyes and follow commands. HEENT: Normocephalic , atraumatic, moist mucous membrane, anicteric eyes, pupils 2 mm equal and reacting to light. Neck : supple, JVD present till the angle of jaw at 30 degree, trachea midline. Chest: Bilateral coarse breath sounds with bilateral diffuse crackles at the bases, ventilator breaths, no wheezing or ronchi heard. Cardiovascular: No palpable apex beat. No parasternal lifts, heaves, thrills, or palpable heart sounds. ICD in situ left pectoral region. First heart sounds diminished. Second heart sounds diminished. No S3 or S4 appreciated. No murmurs appreciated. Abdomen was obese, soft, nontender with normal bowel sounds. No hepatosplenomegaly or organomegaly. Extremities: no cyanosis, clubbing , 1+ edema, femoral pulses are poorly palpable, dorsalis pedis pulses also faitly palpable. Skin: warm and dry, no pallor No rash or lesions Neurology: Intubated, opening eyes when called name, following commands like squeeze my fingers, recognizes family, makes eye contact and nods or shkes his head for yes , no answers. Moving all 4 extremities. Radiology: I looked at this CXR and my interpretation is bilateral diffuse pulmonary edema a little better than yesterday ET tube is in good position. CT head : I looked at the CT head . As per my interpretation there is no cerebral edema. No hemorrhage or infarction. Assessment and Plan: Mr. Tijerina is a 53 years old man with End stage dilated cardiomyopathy with EF 15% as of 2014, s/p v tach arrest in hospital in 2014, s/p pacemaker/AICD in 2015, he presented to [facility] by ambulance for SOB. He himself had called the ambulance. After reaching the ED he became unconsciouses and suffered a cardiorespiratory arrest. Apparently the pt was not feeling well for the past couple of week. As per his cousin he was having a cold. In the ER, pt was in severe respiratory distress; he had respiratory arrest/ cardiac arrest; required CPR for one minute and received Epi. He was intubated which required an anesthesiologist's help after 3 failed attempt by the ED providers. He was given Rocephin, Zithromax and Vanco for presumed dx of pneumonia-related ARDS and transferred here. On arrival to ICU here, pt was unresponsive; hemodynamically stable. STAT CXR showed pulmonary edema and significant Cardiomegaly. A STAT Echo showed EF 10%, LV size 8.5cm (2015 echo EF 15%, LV size 7.2cm). He remains ventilated on high oxygen requirements and high PEEP. His remains in pulmonary edema and cardiogenic shock . [facility] was recontacted after we got the CT head and patient woke up and started communicating verifying that there was no anoxic brain injury they then accepted the patient for transfer. now we are awaiting a bed to open up expecting it later today then we will be airlifting the patient. The Airlift team has been alerted and is on standby and will be ready to move in 20 mins when given the go ahead. Acute respiratory failure with hypoxia and hypercarbia Intubated and sedated requiring high PEEP and high FIO2 Discussed with hazardous substances engineer the ABGs and ventilator setting are being adjusted. Cardiogenic Shock initially patient was on dobutamine gtt then was subsequently after discussion with international logistics manager and transplant center it was decided to start on levophed gtt. Central venous and arterial access was established. Due to End stage dilated cardiomyopathy stop coreg On lasix gtt. Decreasing urine output He may develop ischemic ATN. Acute on chronic end stage systolic and diastolic heart failure With EF of 10%. at present was 15% in 2014 and 45% in 2010. with h/o v-tach cardiac arrest in hospital in 2014 after which he had a AICD placed in [facility] in [place] where he had a prolonged hospitalization continue amiodarone continue lasix gtt. Diabetes mellitus. Monitor FS. Lispro sliding scale Chronic obstructive pulmonary disease (COPD) per chart. continue duonebs Peripheral vascular disease. Hypothyroidism. continue synthroid Dyslipidemia. continue ASA and statin Morbid obesity. Diverticulosis History of tobacco usage. GI prophylaxis with Pantoprazole VS,Fishbone, I+O VS, Fishbone, I+O Laboratory Tests 08/15/18 22:37 Red Blood Count 5.19, Mean Corpuscular Volume 87.7, Mean Corpuscular Hemoglobin 26.6 L, Mean Corpuscular Hemoglobin Concent 30.3 L, Red Cell Distribution Width 14.5, Neutrophils (%) (Auto) 88.5 H, Lymphocytes (%) (Auto) 3.9 L, Monocytes (%) (Auto) 6.5 H, Eosinophils (%) (Auto) 0.0, Basophils (%) (Auto) 0.2, Neutrophils # (Auto) 9.9 H, Lymphocytes # (Auto) 0.4 L, Monocytes # (Auto) 0.7, Eosinophils # (Auto) 0.0, Basophils # (Auto) 0.0, Calcium Level 7.5 L, Aspartate Amino Transf (AST/SGOT) 72 H, Alanine Aminotransferase (ALT/SGPT) 67, Total Creatine Kinase 95, Alkaline Phosphatase 116, Total Bilirubin 0.8, Total Protein 7.0, Albumin 3.3 08/16/18 04:31 Red Blood Count 5.50, Mean Corpuscular Volume 89.3, Mean Corpuscular Hemoglobin 26.7 L, Mean Corpuscular Hemoglobin Concent 29.9 L, Red Cell Distribution Width 14.7 H, Neutrophils (%) (Auto) 93.2 H, Lymphocytes (%) (Auto) 1.5 L, Monocytes (%) (Auto) 4.7, Eosinophils (%) (Auto) 0.0, Basophils (%) (Auto) 0.2, Neutrop hils # (Auto) 14.1 H, Lymphocytes # (Auto) 0.2 L, Monocytes # (Auto) 0.7, Eosinophils # (Auto) 0.0, Basophils # (Auto) 0.0 08/16/18 04:34 Calcium Level 7.9 L, Aspartate Amino Transf (AST/SGOT) 51 H, Alanine Aminotransferase (ALT/SGPT) 62, Total Creatine Kinase 68, Alkaline Phosphatase 105, Total Bilirubin 0.9, Total Protein 7.1, Albumin 3.2, Phosphorus Level 5.3 H, Lactate Dehydrogenase 300 H, Triglycerides Level 61, Cholesterol Level 108 Vital Signs Date Time Temp Pulse Resp B/P (MAP) Pulse Ox O2 Delivery O2 Flow Rate FiO2 08/16/18 10:01 101 28 79/42 (54) 93 95 08/16/18 08:00 97.1 08/16/18 07:37 Ventilator 08/15/18 23:00 95.0 I&O- Last 24 Hours up to 6 AM 08/16/18 06:00 Intake Total 174 ml Output Total 590 ml Balance -416 ml SAMREEN RICHARDS MD August 16, 2018 12:39
--- NOTE | 2018-08-16 16:52 | ROOPDOC ---
[facility] Report Of Operation Report of Operation DATE OF PROCEDURE: 08/16/18 PREPROCEDURE DIAGNOSES: Heart failure, need for central IV access POSTPROCEDURE DIAGNOSES: Same PROCEDURE: 1. US guided access RIJ 2. Placement of a RIJ triple lumen catheter SURGEON: Kathleen German MD ANESTHESIA: local only INDICATION FOR PROCEDURE: Mr Tijerina is a 53 year old gentleman admitted for decompensated heart failure, and has a need for central IV access for monitoring, blood draws, and medications. Risks benefits and alternatives were explained to the patient, and he gave verbal consent. Two nurses were present when I discussed the procedure with the patient. Informed consent was obtained. PROCEDURE: The patient's right neck and chest were prepped and draped in a sterile fashion. A time out was performed. Local anesthesia was administered to the skin and subcutaneous tissue and the right jugular vein was accessed under ultrasound guidance. A wire easily passed through this access, a 2mm incision was made at the access site with a skin knife, and a dilator was passed over the wire using a seldinger technique. The dilator was removed and a triple lumen catheter was passed over the wire and the wire was removed. All three ports lorenzo back easily and were flushed. Appropriate caps were placed. The catheter was sutured into place at all four sites. Sterile dressings were applied. The head of bed was elevated and a chest xray was obtained. The catheter was in good position with no kinks, and the tip was freely mobile at the caval-atrial junction. No pneumothorax noted. ESTIMATED BLOOD LOSS: Approximately 2 mL. COMPLICATIONS: None. PLAN: It is ok to use the catheter. KATHLEEN GERMAN MD August 16, 2018 16:52
--- NOTE | 2018-08-16 18:34 | DS.PDOC ---
Discharge Summary General Date of Admission August 15, 2018 at 21:45 Date of Discharge August 15, 2018 Specialist/Consultants Involve: Gamal QUICK MD Discharge Summary ADMITTING DIAGNOSES: 1. Acute hypoxemic respiratory failure, 2/2 pulmonary edema 2. Current pulmonary arrest 3. Severe cardiomyopathy, EF of 10% 4. Diabetes mellitus 5. COPD 6. Hypothyroidism 7. Hypertension 8. Dyslipidemia DISCHARGE DIAGNOSES: 1. Acute hypoxemic respiratory failure, 2/2 pulmonary edema 2. Current pulmonary arrest 3. Severe cardiomyopathy, EF of 10% 4. Diabetes mellitus 5. COPD 6. Hypothyroidism 7. Hypertension 8. Dyslipidemia COMPLICATIONS/CHIEF COMPLAINT: Acute Respiratory Failure. HISTORY OF PRESENT ILLNESS: Patient is a 53-year-old white male, past medical history of cardiomyopathy with global hypokinesia and EF of 10%, s/p pacemaker/AICD, diabetes, COPD, hypothyroid, HTN, dyslipidemia who presented to the [facility] emergency room last evening with a complaint of shortness of breath. Patient reported general malaise for 1 week. While in the ED, patient was found to be in severe respirat ory distress which progressed to cardiac arrest requiring 1 minute of CPR and a round of epinephrine. Patient was subsequently intubated, given Rocephin, Zithromax and vancomycin for presumed diagnosis of pneumonia related ARDS. Patient was transferred to [facility] and was placed in the ICU upon arrival. Patient was found to be unresponsive yet hemodynamically stable. A stat chest x-ray indicated pulmonary edema and significant cardiomegaly. Stat echocardiogram revealed a left ventricular ejection fraction of 10% and the LV size of 8.5%. Medical record demonstrates the patient had an EF of 15% and an LV size of 7.2 cm in 2014. HOSPITAL COURSE: Upon arrival, patient had a tube leak and likely ruptured cuff. Patient was evaluated by the critical care physician and subsequently successfully reintubated. Patient was not responding to stimuli, patient was unresponsive to a [id number]. Given patient's condition, an accurate review of systems was unable to be obtained. Patient's cousin was present and able to provide some history. He reported that the patient, as usual state of health, was able to walk approximately 50 feet before needing to stop and catch his breath. He was also able to climb 2 flights of stairs. Patient reportedly sleeps in a recliner; a diagnosis of GEREMIAS is unknown. Patient was evaluated by cardiology. Was found to have low cardiac output, hypotensive and in cardiogenic shock with associated cardiac pulmonary edema both interstitial and alveolar. Patient required inotropic support. Given his pressure, patient was unable to tolerate beta janet, JODIE inhibitor, ARB or nipple JODIE inhibitor. Patient was started on a low dose of dobutamine 2.5 g per K Per minute overnight which did not seem to improve the patient's condition. He was subsequently placed on levothyroid noted to maintain a systolic blood pressure 95-110. Diuresis with IV Lasix drip. Patient continued to remain ventilated with high-energy requirements and high PEEP. [facility] was contacted for transfer. Dr. Garcia requested a head CT to rule out cerebral edema, which was negative for an anoxic injury. The late morning of 08/16/18, patient did become arousable and was able to follow minimal commands. The aforementioned head CT and change in mental status was communicated to the transfer team. Patient was then accepted for transfer for further management of his advanced heart failure with the possibility of LVAD placement. Patient was then transferred via airlift to [facility]. DISCHARGE MEDICATIONS: Please see below. ALLERGIES: Please see below. PHYSICAL EXAMINATION ON TRANSFER: GENERAL: Patient intubated but able to open his eyes and follow commands. HEENT: Normocephalic , atraumatic, moist mucous membrane, anicteric eyes, pupils 2 mm equal and reacting to light. Neck : supple, JVD present till the angle of jaw at 30 degree, trachea midline. Chest: Bilateral coarse breath sounds with bilateral diffuse crackles at the bases, ventilator breaths, no wheezing or rhonchi heard. Cardiovascular: No palpable apex beat. No parasternal lifts, heaves, thrills, or palpable heart sounds. ICD in situ left pectoral region. First heart sounds diminished. Second heart sounds diminished. No S3 or S4 appreciated. No murmurs appreciated. Abdomen was obese, soft, nontender with normal bowel sounds. No hepatosplenomegaly or organomegaly. Extremities: no cyanosis, clubbing , 1+ edema, femoral pulses are poorly palpable, dorsalis pedis pulses also faintly palpable. Skin: warm and dry, no pallor No rash or lesions Neurology: Intubated, opening eyes when called name, following commands like squeeze my fingers, recognizes family, makes eye contact and nods or shakes his head for yes , no answers. Moving all 4 extremities. LABORATORY DATA: Please see below. IMAGING: Chest x-ray (08/15/18): Diffuse pulmonary edema pattern, cardiomegaly, endotracheal and nasogastric tubes in place. Chest x-ray (08/15/18): Endotracheal tube is seen in good position just above the transverse aorta. An NG tube enters left upper quadrant of the abdomen. A multi lead pacemaker is seen in the heart via the left side. Moderate to marked cardiomegaly is observed. There is some fissural thickening noted on the right. Eight moderate diffuse interstitial and alveolar pulmonary edema pattern is seen in the lung parenchyma. Chest x-ray (08/16/18): Some improvement noted in interstitial pulmonary edema pattern, cardiomegaly with pacemaker Head CT (08/16/18): Paranasal sinus changes with some fluid levels in the sphenoid and right maxillary sinus. Otherwise negative CT brain Chest x-ray (08/16/18): Right IJ line in place. No evidence of pneumothorax DISCHARGE PLAN: Transfer to [facility] for higher level of care DISCHARGE CONDITION: Current condition is stable, overall prognosis is poor TIME SPENT ON TRANSFER: Greater than 35 minutes. Vital Signs/I&Os Vital Signs Date Time Temp Pulse Resp B/P (MAP) Pulse Ox O2 Delivery O2 Flow Rate FiO2 08/16/18 15:09 96 08/16/18 15:02 70 08/16/18 15:02 30 08/16/18 14:54 117/56 (76) 08/16/18 14:52 113 08/16/18 08:00 97.1 08/16/18 07:37 Ventilator 08/15/18 23:00 95.0 I&O- Last 24 Hours up to 6 AM 08/16/18 06:00 Intake Total 174 ml Output Total 590 ml Balance -416 ml Laboratory Data Labs 24H Laboratory Tests 2 08/15/18 22:37: Immature Granulocyte % (Auto) 0.9, White Blood Count 11.2H, Red Blood Count 5.19, Hemoglobin 13.8, Hematocrit 45.5, Mean Corpuscular Volume 87.7, Mean Corpuscular Hemoglobin 26.6L, Mean Corpuscular Hemoglobin Concent 30.3L, Red Cell Distribution Width 14.5, Platelet Count 271, Neutrophils (%) (Auto) 88.5H, Lymphocytes (%) (Auto) 3.9L, Monocytes (%) (Auto) 6.5H, Eosinophils (%) (Auto) 0.0, Basophils (%) (Auto) 0.2, Neutrophils # (Auto) 9.9H, Lymphocytes # (Auto) 0.4L, Monocytes # (Auto) 0.7, Eosinophils # (Auto) 0.0, Basophils # (Auto) 0.0, Nucleated Red Blood Cells % (auto) 0.0, Prothrombin Time 14.4, Prothromb Time International Ratio 1.11, Activated Partial Thromboplast Time 31.5, Anion Gap 6L, Glomerular Filtration Rate > 60.0, Lactic Acid Level 1.1, Blood Urea Nitrogen 19H, Creatinine 1.11, Sodium Level 141, Potassium Level 3.3L, Chloride Level 108H, Carbon Dioxide Level 27, Calcium Level 7.5L, Aspartate Amino Transf (AST/SGOT) 72H, Alanine Aminotransferase (ALT/SGPT) 67, Total Creatine Kinase 95, Alkaline Phosphatase 116, Total Bilirubin 0.8, Total Protein 7.0, Albumin 3.3, Creatine Kinase MB 3.0, Creatine Kinase MB Relative Index 2.84, Troponin I 0.13H, ZR-Vfa-N-Type Natriuretic Peptide 21370L, Albumin/Globulin Ratio 0.89L 08/15/18 22:39: Aspartate Amino Transf (AST/SGOT) 76H, Alanine Aminotransferase (ALT/SGPT) 68, Alkaline Phosphatase 122H, Total Bilirubin 0.8, Total Protein 6.7, Albumin 3.3, Albumin/Globulin Ratio 0.97L, Estimated Mean Plasma Glucose 108, Hemoglobin A1c 5.4, Magnesium Level 2.0, Direct Bilirubin 0.3H, Triglycerides Level 65, Total C holesterol 115, LDL Cholesterol 38, Non-HDL Cholesterol (LDL + VLDL) 51, Total HDL Cholesterol 64, Cholesterol/HDL Ratio 1.796, Thyroid Stimulating Hormone (TSH) 2.240 08/15/18 23:04: Blood Gas Bicarbonate Standard 18.9L, Arterial Blood pH 7.112*L, Arterial Blood Partial Pressure CO2 78.6*H, Arterial Blood Partial Pressure O2 75.2, Arterial Blood Total CO2 26.9, Arterial Blood HCO3 24.5, Arterial Blood Base Excess - 6.8L, Arterial Blood Oxygen Saturation 90.5L 08/16/18 01:08: Blood Gas Bicarbonate Standard 19.1L, Arterial Blood pH 7.157*L, Arterial Blood Partial Pressure CO2 68.4*H, Arterial Blood Partial Pressure O2 80.7, Arterial Blood Total CO2 25.8, Arterial Blood HCO3 23.7, Arterial Blood Base Excess - 6.5L, Arterial Blood Oxygen Saturation 93.1L 08/16/18 04:31: Immature Granulocyte % (Auto) 0.4, White Blood Count 15.1H, Red Blood Count 5.50, Hemoglobin 14.7, Hematocrit 49.1, Mean Corpuscular Volume 89.3, Mean Corpuscular Hemoglobin 26.7L, Mean Corpuscular Hemoglobin Concent 29.9L, Red Cell Distribution Width 14.7H, Platelet Count 297, Neutrophils (%) (Auto) 93.2H, Lymphocytes (%) (Auto) 1.5L, Monocytes (%) (Auto) 4.7, Eosinophils (%) (Auto) 0.0, Basophils (%) (Auto) 0.2, Neutrophils # (Auto) 14.1H, Lymphocytes # (Auto) 0.2L, Monocytes # (Auto) 0.7, Eosinophils # (Auto) 0.0, Basophils # (Auto) 0.0, Nucleated Red Blood Cells % (auto) 0.0 08/16/18 04:34: Anion Gap 7L, Glomerular Filtration Rate > 60.0, Blood Urea Nitrogen 20H, Creatinine 1.25, Sodium Level 143, Potassium Level 3.6, Chloride Level 108H, Carbon Dioxide Level 28, Calcium Level 7.9L, Phosphorus Level 5.3H, Aspartate Amino Transf (AST/SGOT) 51H, Alanine Aminotransferase (ALT/SGPT) 62, Lactate Dehydrogenase 300H, Total Creatine Kinase 68, Alkaline Phosphatase 105, Total Bilirubin 0.9, Triglycerides Level 61, Cholesterol Level 108, Total Protein 7.1, Albumin 3.2, Creatine Kinase MB 3.0, Creatine Kinase MB Relative Index 4.12H, Troponin I 0.10#, Albumin/Globulin Ratio 0.82L 08/16/18 05:58: Blood Gas Bicarbonate Standard 19.7L, Arterial Blood pH 7.146*L, Arterial Blood Partial Pressure CO2 73.6*H, Arterial Blood Partial Pressure O2 97.2, Arterial Blood Total CO2 27.1, Arterial Blood HCO3 24.8, Arterial Blood Base Excess - 5.8L, Arterial Blood Oxygen Saturation 96.2 08/16/18 10:19: Blood Gas Bicarbonate Standard 21.1L, Arterial Blood pH 7.225*L, Arterial Blood Partial Pressure CO2 60.9*H, Arterial Blood Partial Pressure O2 86.9, Arterial Blood Total CO2 26.5, Arterial Blood HCO3 24.6, Arterial Blood Base Excess - 4.0L, Arterial Blood Oxygen Saturation 96.2 08/16/18 12:01: Bedside Glucose (Misc Panel) 186H CBC/BMP Laboratory Tests 08/15/18 22:37 Red Blood Count 5.19, Mean Corpuscular Volume 87.7, Mean Corpuscular Hemoglobin 26.6 L, Mean Corpuscular Hemoglobin Concent 30.3 L, Red Cell Distribution Width 14.5, Neutrophils (%) (Auto) 88.5 H, Lymphocytes (%) (Auto) 3.9 L, Monocytes (%) (Auto) 6.5 H, Eosinophils (%) (Auto) 0.0, Basophils (%) (Auto) 0.2, Neutrophils # (Auto) 9.9 H, Lymphocytes # (Auto) 0.4 L, Monocytes # (Auto) 0.7, Eosinophils # (Auto) 0.0, Basophils # (Auto) 0.0, Calcium Level 7.5 L, Aspartate Amino Transf (AST/SGOT) 72 H, Alanine Aminotransferase (ALT/SGPT) 67, Total Creatine Kinase 95, Alkaline Phosphatase 116, Total Bilirubin 0.8, Total Protein 7.0, Albumin 3.3 08/16/18 04:31 Red Blood Count 5.50, Mean Corpuscular Volume 89.3, Mean Corpuscular Hemoglobin 26.7 L, Mean Corpuscular Hemoglobin Concent 29.9 L, Red Cell Distribution Width 14.7 H, Neutrophils (%) (Auto) 93.2 H, Lymphocytes (%) (Auto) 1.5 L, Monocytes (%) (Auto) 4.7, Eosinophils (%) (Auto) 0.0, Basophils (%) (Auto) 0.2, Neutrophils # (Auto) 14.1 H, Lymphocytes # (Auto) 0.2 L, Monocytes # (Auto) 0.7, Eosinophils # (Auto) 0.0, Basophils # (Auto) 0.0 08/16/18 04:34 Calcium Level 7.9 L, Aspartate Amino Transf (AST/SGOT) 51 H, Alanine Aminotransferase (ALT/SGPT) 62, Total Creatine Kinase 68, Alkaline Phosphatase 105, Total Bilirubin 0.9, Total Protein 7.1, Albumin 3.2, Phosphorus Level 5.3 H, Lactate Dehydrogenase 300 H, Triglycerides Level 61, Cholesterol Level 108 FSBS Laboratory Tests Test 08/16/18 12:01 Range/Units Bedside Glucose (Misc Panel) 186 70-105 MG/DL Microbiology Microbiology 08/15/18 Respiratory Virus Panel (PCR) ([facility]) - Final, Complete Discharge Medications Scheduled Amiodarone Hcl (Pacerone) 200 Mg Tablet, 200 MG PO DAILY, (Reported) Aspirin (Aspirin EC) 81 Mg Tablet.dr, 81 MG PO DAILY, (Reported) Atorvastatin Calcium (Atorvastatin Calcium) 20 Mg Tablet, 20 MG PO DAILY, (Reported) Carvedilol (Carvedilol) 3.125 Mg Tablet, 3.125 MG PO BID, (Reported) Cyanocobalamin (Vitamin B-12) (Vitamin B-12) 1,000 Mcg Tablet, 1,000 MCG PO DAILY, (Reported) Fluticasone Propion/Salmeterol (Airduo Respiclick 113-14 Mcg) 1 Each Aer.pow.ba, 1 PUFF INH BID, (Reported) Levothyroxine Sodium (Levothyroxine Sodium) 25 Mcg Tablet, 25 MCG PO DAILY, (Reported) Lisinopril (Lisinopril) 2.5 Mg Tablet, 2.5 MG PO DAILY, (Reported) Topiramate (Topiramate) 50 Mg Tablet, 50 MG PO BID, (Reported) Torsemide (Torsemide) 20 Mg Tablet, 20 MG PO DAILY, (Reported) Umeclidinium Downey (Incruse Ellipta) 62.5 Mcg Blst.w.dev, 1 PUFF INH DAILY, (R eported) Scheduled PRN Albuterol Sulf (Albuterol Sulfate) 2.5 Mg/3 Ml Vial.neb, 2.5 MG INH Q4H PRN for SHORTNESS OF BREATH, (Reported) Albuterol Sulfate (Ventolin Hfa) 18 Gm Hfa.aer.ad, 2 PUFF INH Q4H PRN for wheezing, (Reported) Allergies Coded Allergies: No Known Allergies (Unverified , 04/20/14) GME ATTESTATION GME ATTESTATION My faculty preceptor for this patient encounter was physically present during the encounter and was fully available. All aspects of the patient interview, examination, medical decision making process, and medical care plan development were reviewed and approved by the faculty preceptor. The faculty preceptor is aware and concurs with the plan as stated in the body of this note and will attest to such by his/her cosignature. GME ATTESTATION GME ATTESTATION My faculty preceptor for this patient encounter was physically present during the encounter and was fully available. All aspects of the patient interview, examination, medical decision making process, and medical care plan development were reviewed and approved by the faculty preceptor. The faculty preceptor is aware and concurs with the plan as stated in the body of this note and will attest to such by his/her cosignature. KEN COUCH DO August 16, 2018 18:34
--- NOTE | 2018-08-16 22:16 | ECGEPIP ---
Stationary ECG Study [facility] Test Date: 2018-08-16 Pat Name: DELICIA MAHAN Department: Room: [place] [address] Gender: M Building Drafting Officer: SUSANA : 1965 Requested By: Israel Carlson Order Number: [id number] Reading MD: Israel Carlson Measurements Intervals [place] Rate: 109 P: 42 AL: 164 QRS: 177 QRSD: 156 T: -4 QT: 383 QTc: 516 Interpretive Statements Sinus rhythm, P-synchronous biventricular paced rhythm. ABNORMAL RHYTHM ECG Electronically Signed On 08-16-2018 22:16:30 EDT by Israel Carlson
--- NOTE | 2018-08-17 21:37 | CCN ---
DATE: 08/16/2018 Mr. Tijerina remains critically ill. Since I left last evening, he has gradually awoken and this morning does open his eyes to voice, nods yes or no to questions, and squeezes hands to command. When he started showing signs of awakening, his continuous sedation was stopped, which had been in place as it was thought his paralytic was on board for longer than anticipated. He indicates no discomfort. He also indicates that he is aware of the severity of his heart disease, but it has never previously been discussed for a possible left ventricular assist device or heart transplantation. Dr. Cabello had spoken to [facility] earlier this morning, and they thought he was an appropriate candidate for further evaluation at their institution as long as he did not show any abnormalities given his arrest. Mr. Tijerina indicates that he would be in agreement for transfer to their facility. Earlier this morning he had been started on dobutamine 2.5 mcg/kg per minute, but that did not make a clinical difference. He has been on a Lasix drip without significant urine output. His blood pressure this morning had decreased to systolics in the high 70s. I had spoken to Dr. Rios regarding his mental status, and he was agreeable to accepting him. In discussing with him and Dr. Carlson the appropriate blood pressure management, the decision was to discontinue the dobutamine and to use norepinephrine for vasopressor support if discontinuing the dobutamine did not alter the outcome level. Other possibilities were discussed, including milrinone, which we do not have on formula, as well as balloon pump, which we cannot do at this facility. There was not a blood pressure change off of the dobutamine, and therefore he was started on norepinephrine with a goal of an systolic blood pressure (SBP) of 95-115. OBJECTIVE: PHYSICAL EXAMINATION: GENERAL: Mr. Tijerina is intubated and synchronous with the ventilator. He has not required any sedation and is following commands appropriately. VITAL SIGNS: Temperature 97.1, which is his maximal temperature, pulse in the low 100s, blood pressure mean arterial pressures (MAPs) typically run mid 50s to low 70s. Systolics have run in the high 70s to transiently in the 120s on Levophed. Respiratory rate 28, which is the set rate on the ventilator. SpO2 is 90-94% on an FiO2 of 60-70%. HEENT: Anicteric, pupils equal, round, and reactive to light (PERRL). Nares patent bilaterally. Oropharynx: Endotracheal tube (ET) tube and orogastric (OG) tube in place. NECK: Supple. Trachea is midline. LYMPHATIC: Without cervical or supraclavicular lymphadenopathy. LUNGS: Symmetric excursion. Good air entry. Bilateral crackles. No wheeze or rhonchi. Normal inspiratory to expiratory (I-to-E). No accessory muscle usage or retractions. CARDIOVASCULAR: Tachycardic, regular rhythm. Normal S1, S2. No murmur, rub, or gallop appreciated. ABDOMEN: Positive bowel sounds. Soft, nontender. He does not indicate tenderness. No hepatosplenomegaly or masses appreciated. EXTREMITIES: Warm. Palpable pedal pulses bilaterally. Trace pedal and pretibial edema. Venous stasis changes. No cyanosis or clubbing. NEUROLOGIC: No focal deficits. He is following commands and can lift his arms and squeeze his hands. He appears oriented and appears to nod appropriately to questions. LABORATORY DATA: CBC shows a hemoglobin 14.7, hematocrit 49.1, platelet count 297,00, white blood cell count 15,100 with a differential of 93% neutrophils, 2% lymphocytes, 5% monocytes. Chemistries from this morning showed a sodium 143, potassium 3.6, chloride 108, bicarbonate 28, anion gap 7, BUN 20, creatinine 1.3, glucose 166, calcium 7.9, phosphorus 5.3. Total bilirubin 0.9, AST 51, ALT 62, alkaline phosphatase 105, LDH 300. CK 68, CK-MB 3.0, troponin I of 0.10, total protein 7.1, albumin 3.2. Arterial blood gas on pressure-regulated volume control (PRVC): Tidal volume of 350 (7 mL/kg predicted body weight), positive end-expiratory pressure (PEEP) of 12, and FiO2 of 0.7 with 7.23/61/87 with measured saturation 96% and a base excess of -4. Intake and output since admission yesterday evening 0 in, 320 out. Thus far today, 174 in, 375 out, making him negative 201. Weight 96.8 kg. I reviewed his chest x-ray as well as the report from earlier today. That x-ray showed an enlarged cardiac silhouette with normal to possibly enlarged pulmonary vascular shadows. Normal-appearing mediastinal region. There are bilateral infiltrates, consistent with pulmonary edema. No consolidated regions. Endotracheal tube is in good position. IMPRESSION: 1. Acute hypoxemic respiratory failure secondary to congestive heart failure (CHF). 2. Cardiogenic shock. 3. Acute and chronic systolic and diastolic heart failure, end-stage disease. 4. Dilated cardiomyopathy. 5. Acute renal insufficiency. 6. Diabetes mellitus per chart. 7. Chronic obstructive pulmonary disease (COPD), per chart. 8. Hypothyroidism. 9. Hypertension at baseline. 10. Dyslipidemia. RECOMMENDATIONS: 1. As noted above, I spoke to Dr. Rios at [facility], who has graciously accepted the patient. 2. Will make arrangements to have him phone to [facility]. 3. Appreciate cardiology input. 4. Pending transfer, will continue the intravenous furosemide and use of norepinephrine as a pressor. 5. As he is alert and is responding appropriately to questions, we clarified the healthcare proxy. Mr. Tijerina clearly indicated to me and several other witnesses that he wanted his cousin, Pablito, to be his primary healthcare proxy and his cousin, Manuel, as his second health proxy. Appropriate forms were completed. PROGNOSIS: Guarded. CRITICAL CARE TIME: An additional 2 hours, not including procedure time.
--- NOTE | 2018-08-18 10:08 | RO ---
DATE OF PROCEDURE: 08/15/2018 PREPROCEDURE DIAGNOSES: Hypotension and need for vasopressor usage, mixed acidemia at each frequent blood pressure evaluation. POSTPROCEDURE DIAGNOSIS: Hypotension and need for vasopressor usage, mixed acidemia at each frequent blood pressure evaluation. PROCEDURE: Radial arterial line. PROCEDURALIST: Dr. Gonzales SOFA BACK UPHOLSTERER: ANESTHESIA: DESCRIPTION OF PROCEDURE: Procedure explained and verbal consent was obtained. Isola procedure was followed. Following this, the left wrist was prepped and draped in a sterile fashion. 1% Lidocaine was used as a local anesthetic. The left radial artery was cannulated on the second attempt. The wire threaded easily and a catheter was placed by modified Seldinger technique. Arterial line was sutured in place. I had good blood draw. After scale adjustments, he had a good waveform. He tolerated it well.
== END 2018-08-16 15:20 | disposition short-term general hospital (02) | DRG 951 ==
LOC: M ICU 21:45
PROVIDERS: ADMIT Internal Medicine; ATTEND Internal Medicine Nephrology
PROC: 5A1935Z Respiratory Ventilation, Less than 24 Consecutive Hours (ICD-10-PCS; 2018-08-15)
PROC: 02H633Z Insertion of Infusion Device into Right Atrium, Percutaneous Approach (ICD-10-PCS; principal; 2018-08-16)
PROC: 03HY32Z Insertion of Monitoring Device into Upper Artery, Percutaneous Approach (ICD-10-PCS; 2018-08-16)
DX: J96.01 Acute respiratory failure with hypoxia (principal); I46.9 Cardiac arrest, cause unspecified; R57.0 Cardiogenic shock; I50.43 Acute on chronic combined systolic (congestive) and diastolic (congestive) heart failure; E87.2 Acidosis; I42.0 Dilated cardiomyopathy; J96.02 Acute respiratory failure with hypercapnia; Z68.41 Body mass index [BMI] 40.0-44.9, adult; E11.51 Type 2 diabetes mellitus with diabetic peripheral angiopathy without gangrene; I50.84 End stage heart failure; E66.01 Morbid (severe) obesity due to excess calories; J44.9 Chronic obstructive pulmonary disease, unspecified; E03.9 Hypothyroidism, unspecified; Z79.82 Long term (current) use of aspirin; Z79.899 Other long term (current) drug therapy; E78.5 Hyperlipidemia, unspecified; Z87.891 Personal history of nicotine dependence; Z98.41 Cataract extraction status, right eye; Z95.810 Presence of automatic (implantable) cardiac defibrillator

== ENCOUNTER 2021-06-19 00:21 | Inpatient (IN) | payer OTHER ==
[2021-06-19] VITALS (130 sets, daily range): BP systolic 80–132; BP diastolic 48–70
[~2021-06-19] VITALS: Ht 162.6 cm; Wt 77.6 kg
[~2021-06-19 00:21] MED LIST changes: +AIRD1INH2 INH; +ALBU83IN INH; +ASPI81TA26 PO; +ATOR1TAB21 PO; +CARV3.12 PO; +CYAN100049 PO; +INCR1INH INH; +LEVO25TA5 PO; -LISI-1046 PO; +LISI2.5T9 PO; +PACE200T PO; -SIMV20TA2 PO; +SIMV20TA22 PO; +TOPI50TA9 PO; +TORS20TA2 PO; +VENTAER INH; +ZETI10TA16 PO; -ZETI10TA30 PO
[2021-06-19] MEDS ORDERED: REFRIGERATOR IV KEYS XX PRN (01:35)
[2021-06-19] MEDS ORDERED: DOBUTamine HCL 500,000 MCG in IV 1 EA IV SCH (01:35)
[2021-06-19 01:56] LABS: ABG FIO2 100; ABG HCO3 36.1 MEQ/L (22.0-26.0); ABG O2 SATURATION 99.8 % (95.0-99.0); ABG PARTIAL PRESSURE CO2 56.2 mmHg (35.0-45.0); ABG PARTIAL PRESSURE O2 286.9 mmHg (75.0-100.0); ABG PATIENT RESP RATE 20 /MIN; ABG PEEP 10; ABG STANDARD HCO3 33.8 MEQ/L (22.0-26.0); ABG TIDAL VOLUME 450 cc; ABG TOTAL CO2 37.9 MEQ/L (22.0-29.0); ABG pH (ARTERIAL) 7.426 UNITS (7.350-7.450)
[2021-06-19 01:58] LABS: BASO % 0.1 % (0.0-1.0); HEMATOCRIT 32.8 % (42.0-52.0); HEMOGLOBIN 10.3 g/dl (13.5-17.5); LYMPH # 0.1 10^3/uL (1.5-5.0); LYMPH % 0.5 % (24.0-44.0); MEAN CORPUSCULAR HEMOGLOBIN 28.5 pg (27.0-33.0); MEAN CORPUSCULAR HGB CONC 31.4 g/dl (32.0-36.5); MEAN CORPUSCULAR VOLUME 90.9 fl (80.0-96.0); MONO % 9.1 % (2.0-8.0); NEUTROPHILS # 17.1 10^3/uL (1.5-8.5); NEUTROPHILS % 89.8 % (36.0-66.0); PLATELET COUNT, AUTOMATED 223 10^3/uL (150-450); RED BLOOD COUNT 3.61 10^6/uL (4.30-6.10)
[2021-06-19 02:01] LABS: MONO # 1.7 10^3/uL (0.0-0.8)
[2021-06-19] MEDS: fentaNYL CITRATE 1,000 MCG in NS 80 ML IV SCH ×2 (02:01→18:15)
[2021-06-19] MEDS: MIDAZOLAM HCL 100 MG in D5W 80 ML IV SCH (02:04)
[2021-06-19] MEDS: NOREPINEPHRINE BITARTRATE 8 MG in D5W 492 ML IV SCH ×3 (02:07→17:35)
[2021-06-19 02:29] LABS: CK-MB VALUE MASS 5.8 NG/ML (<3.6); MB/CK RELATIVE INDEX 8.53 (< OR =4)
[2021-06-19 02:35] LABS: ALBUMIN 2.9 GM/DL (3.2-5.2); BILIRUBIN,TOTAL 1.3 MG/DL (0.2-1.0); CALCIUM LEVEL 7.9 MG/DL (8.5-10.1); CREATININE FOR GFR 1.76 MG/DL (0.70-1.30); GLOMERULAR FILTRATION RATE 42.9 (>56); POTASSIUM SERUM 4.3 MEQ/L (3.5-5.1); TOTAL PROTEIN 5.2 GM/DL (6.4-8.2)
[2021-06-19] MEDS: methylPREDNISolone 125MG 2ML VIAL IV SCH ×2 (02:58→14:56)
[2021-06-19] MEDS ORDERED: CEFEPIME HCL 1 GM in D5W MINI-BAG PLUS 50 ML IV SCH (03:00)
[2021-06-19 03:01] LABS: INR 1.92; PROTHROMBIN TIME 22.4 SECONDS (12.7-14.5)
[2021-06-19] MEDS: IPRATROPIUM 0.5MG/ALBUTEROL 2.5MG INH SOL UD 3ML (DUONEB) NEB SCH ×4 (03:07→19:13)
[2021-06-19] MEDS: BUDESONIDE 0.5 MG/2 ML INHALATION SUSPENSION INH SCH ×2 (03:10→19:13)
[2021-06-19] MEDS ORDERED: MEXI15CA PO (03:53)
[2021-06-19] MEDS ORDERED: BUME1TAB3 PO (03:53)
[2021-06-19] MEDS ORDERED: ALEN10TA5 PO (03:56)
[2021-06-19] MEDS ORDERED: med rec comment (03:57)
[2021-06-19] MEDS ORDERED: CEFEPIME HCL 2 GM in D5W MINI-BAG PLUS 50 ML IV ONE (04:00)
[2021-06-19] MEDS ORDERED: HOME MED LIST COMPLETE! XX SCH (04:00)
[2021-06-19] MEDS: LEVOTHYROXINE 25MCG TABLET (0.025MG) PO SCH (05:31)
[2021-06-19 05:42] LABS: BASO % 0.1 % (0.0-1.0); HEMATOCRIT 33.9 % (42.0-52.0); HEMOGLOBIN 10.6 g/dl (13.5-17.5); LYMPH # 0.1 10^3/uL (1.5-5.0); LYMPH % 0.4 % (24.0-44.0); MEAN CORPUSCULAR HGB CONC 31.3 g/dl (32.0-36.5); MEAN CORPUSCULAR VOLUME 89.7 fl (80.0-96.0); MONO % 4.6 % (2.0-8.0); NEUTROPHILS # 20.5 10^3/uL (1.5-8.5); NEUTROPHILS % 94.2 % (36.0-66.0); PLATELET COUNT, AUTOMATED 255 10^3/uL (150-450); RED BLOOD COUNT 3.78 10^6/uL (4.30-6.10); WHITE BLOOD COUNT 21.7 10^3/uL (4.0-10.0)
[2021-06-19] MEDS ORDERED: HEPARIN SOD (PORCINE) 5000UNITS/ML 1ML VIAL/SYRINGE SC SCH (06:00)
[2021-06-19] MEDS ORDERED: VANCOMYCIN HCL 1,000 MG, VIAL MATE ADAPTER 1 EACH in NS 250 ML IV ONE (06:00)
[2021-06-19 06:12] LABS: ALBUMIN 2.9 GM/DL (3.2-5.2); BILIRUBIN,TOTAL 1.4 MG/DL (0.2-1.0); CREATININE FOR GFR 1.89 MG/DL (0.70-1.30); GLOMERULAR FILTRATION RATE 39.5 (>56); POTASSIUM SERUM 4.4 MEQ/L (3.5-5.1); TOTAL PROTEIN 5.5 GM/DL (6.4-8.2)
[2021-06-19 06:17] LABS: CK-MB VALUE MASS 7.6 NG/ML (<3.6); MB/CK RELATIVE INDEX 10.56 (< OR =4)
[2021-06-19] MEDS ORDERED: VANCOMYCIN HCL 500 MG in D5W MINI-BAG PLUS 100 ML IV ONE (07:00)
[2021-06-19] MEDS: TOPIRAMATE (TopAMAX) 25 MG TAB PO SCH (08:37)
[2021-06-19] MEDS: PANTOPRAZOLE 40MG VIAL (C9113 PER 1) IV SCH (08:37)
[2021-06-19] MEDS: ASPIRIN 81 MG CHEW TABLET PO SCH (08:38)
[2021-06-19] MEDS: AMIODARONE 200 MG TAB (PACERONE) PO SCH (08:38)
[2021-06-19] MEDS: CHLORHEXIDINE GLUCONATE 0.12 % 15ML UDC (PERIDEX ORAL RINSE) MT SCH ×2 (08:38→21:06)
[2021-06-19] MEDS: MIDAZOLAM INJ 2MG/2ML VIAL (J2250 PER 1MG) IV PRN ×4 (12:41→21:29)
[2021-06-19 13:26] LABS: CK-MB VALUE MASS 3.8 NG/ML (<3.6); MB/CK RELATIVE INDEX 6.91 (< OR =4)
[2021-06-19 15:01] LABS: APPEARANCE, URINE HAZY (CLEAR); BACTERIA, URINE AUTO 2+ (NEGATIVE); BILIRUBIN, URINE AUTO NEGATIVE (NEGATIVE); BLOOD, URINE BLOOD 1+ (NEGATIVE); COLOR, URINE YELLOW (YELLOW); GLUCOSE, URINE (UA) AUTO 1+ mg/dL (NEGATIVE); KETONE, URINE AUTO NEGATIVE (NEGATIVE); LEUKOCYTE ESTERASE, URINE AUTO NEGATIVE (NEGATIVE); NITRITE, URINE AUTO NEGATIVE (NEGATIVE); PROTEIN, URINE AUTO 1+ mg/dL (NEGATIVE); RBC, URINE AUTO 8 /HPF (0-3); SQUAMOUS EPITHELIAL CELL UR AU 0 /HPF (0-6); UROBILINOGEN, URINE AUTO 0.2 mg/dL (0.0-2.0); WBC, URINE AUTO 4 /HPF (0-3)
[2021-06-19] MEDS ORDERED: MIDAZOLAM HCL 100 MG in D5W 80 ML IV SCH (17:44)
[2021-06-19] MEDS: CEFEPIME HCL 2 GM in D5W MINI-BAG PLUS 50 ML IV SCH (18:14)
[2021-06-19 18:29] LABS: CK-MB VALUE MASS 1.9 NG/ML (<3.6); MB/CK RELATIVE INDEX 3.96 (< OR =4)
[2021-06-19] MEDS: ATORVASTATIN 20 MG TAB PO SCH (21:06)
[2021-06-19 23:59] LABS: CALCIUM LEVEL 8.3 MG/DL (8.5-10.1); CREATININE FOR GFR 2.39 MG/DL (0.70-1.30); GLOMERULAR FILTRATION RATE 30.1 (>56); PHOSPHORUS LEVEL 2.5 MG/DL (2.5-4.9); POTASSIUM SERUM 4.9 MEQ/L (3.5-5.1)
[2021-06-20] VITALS (101 sets, daily range): BP systolic 89–136; BP diastolic 52–77
[2021-06-20] MEDS ORDERED: UNRESOLVED CLARIFICATION ENTRY XX SCH (00:01)
[2021-06-20] MEDS: IPRATROPIUM 0.5MG/ALBUTEROL 2.5MG INH SOL UD 3ML (DUONEB) NEB SCH ×4 (01:21→19:32)
[2021-06-20] MEDS: methylPREDNISolone 125MG 2ML VIAL IV SCH ×2 (02:18→14:29)
[2021-06-20] MEDS: MIDAZOLAM HCL 100 MG in D5W 80 ML IV SCH (02:20)
[2021-06-20] MEDS: CEFEPIME HCL 2 GM in D5W MINI-BAG PLUS 50 ML IV SCH ×2 (04:48→17:07)
[2021-06-20] MEDS: NOREPINEPHRINE BITARTRATE 8 MG in D5W 492 ML IV SCH ×2 (04:48→18:34)
[2021-06-20] MEDS: LEVOTHYROXINE 25MCG TABLET (0.025MG) PO SCH (06:31)
[2021-06-20 07:17] LABS: BASO % 0.1 % (0.0-1.0); LYMPH # 0.1 10^3/uL (1.5-5.0); LYMPH % 0.4 % (24.0-44.0); MEAN CORPUSCULAR HEMOGLOBIN 28.4 pg (27.0-33.0); MEAN CORPUSCULAR HGB CONC 33.3 g/dl (32.0-36.5); MEAN CORPUSCULAR VOLUME 85.2 fl (80.0-96.0); MONO # 0.7 10^3/uL (0.0-0.8); MONO % 4.1 % (2.0-8.0); NEUTROPHILS # 15.1 10^3/uL (1.5-8.5); NEUTROPHILS % 94.9 % (36.0-66.0); PLATELET COUNT, AUTOMATED 268 10^3/uL (150-450); RED BLOOD COUNT 3.52 10^6/uL (4.30-6.10); WHITE BLOOD COUNT 15.9 10^3/uL (4.0-10.0)
[2021-06-20] MEDS: BUDESONIDE 0.5 MG/2 ML INHALATION SUSPENSION INH SCH ×2 (07:34→19:32)
[2021-06-20 07:47] LABS: ALBUMIN 2.7 GM/DL (3.2-5.2); BILIRUBIN,TOTAL 1.2 MG/DL (0.2-1.0); CALCIUM LEVEL 8.2 MG/DL (8.5-10.1); CREATININE FOR GFR 2.68 MG/DL (0.70-1.30); GLOMERULAR FILTRATION RATE 26.4 (>56); POTASSIUM SERUM 4.4 MEQ/L (3.5-5.1)
[2021-06-20] MEDS ORDERED: VANCOMYCIN INTERMITTENT/PULSE DOSING BY CLINICAL PHARMACIST PER DOSING PROTOCOL XX SCH (07:55)
[2021-06-20] MEDS ORDERED: VANCOMYCIN HCL 1,000 MG, VIAL MATE ADAPTER 1 EACH in NS 250 ML IV SCH (08:00)
[2021-06-20] MEDS: PANTOPRAZOLE 40MG VIAL (C9113 PER 1) IV SCH (08:06)
[2021-06-20] MEDS: CHLORHEXIDINE GLUCONATE 0.12 % 15ML UDC (PERIDEX ORAL RINSE) MT SCH ×2 (08:06→20:12)
[2021-06-20] MEDS: TOPIRAMATE (TopAMAX) 25 MG TAB PO SCH (08:06)
[2021-06-20] MEDS: ASPIRIN 81 MG CHEW TABLET PO SCH (08:06)
[2021-06-20 08:23] LABS: ABG BASE EXCESS 7.7 (-2.0-2.0); ABG HCO3 30.4 MEQ/L (22.0-26.0); ABG O2 SATURATION 97.1 % (95.0-99.0); ABG PARTIAL PRESSURE CO2 35.3 mmHg (35.0-45.0); ABG PARTIAL PRESSURE O2 87.4 mmHg (75.0-100.0); ABG STANDARD HCO3 31.6 MEQ/L (22.0-26.0); ABG TOTAL CO2 31.5 MEQ/L (22.0-29.0); ABG pH (ARTERIAL) 7.553 UNITS (7.350-7.450)
[2021-06-20] MEDS: AMIODARONE 200 MG TAB (PACERONE) PO SCH (08:58)
[2021-06-20 09:29] LABS: INR 1.74; PROTHROMBIN TIME 20.8 SECONDS (12.7-14.5)
[2021-06-20] MEDS ORDERED: HEPARIN SOD (PORCINE) 5000UNITS/ML 1ML VIAL/SYRINGE IV ONE (09:50)
[2021-06-20] MEDS ORDERED: HEPARIN SOD (PORCINE) 5000UNITS/ML 1ML VIAL/SYRINGE IV PRN (09:50)
[2021-06-20 10:08] LABS: PARTIAL THROMBOPLASTIN TIME 38.9 SECONDS (25.9-37.0)
[2021-06-20] MEDS: HEPARIN DRIP 25,000 UNITS in IV 1 EA IV SCH (10:32)
[2021-06-20 17:00] LABS: CALCIUM LEVEL 8.4 MG/DL (8.5-10.1); CREATININE FOR GFR 2.79 MG/DL (0.70-1.30); GLOMERULAR FILTRATION RATE 25.2 (>56); POTASSIUM SERUM 4.1 MEQ/L (3.5-5.1)
[2021-06-20] MEDS: fentaNYL CITRATE 1,000 MCG in NS 80 ML IV SCH (18:34)
[2021-06-20] MEDS ORDERED: MAGNESIUM SULFATE IN WATER 2 GM in IV 1 EA IV STA ×2 (20:03)
[2021-06-20] MEDS: ATORVASTATIN 20 MG TAB PO SCH (20:12)
[2021-06-20] MEDS ORDERED: AMIODARONE 200 MG TAB (PACERONE) PO ONE (20:55)
[2021-06-20 21:15] LABS: POTASSIUM SERUM 4.4 MEQ/L (3.5-5.1)
[2021-06-20 21:30] LABS: CALCIUM LEVEL 8.2 MG/DL (8.5-10.1); CREATININE FOR GFR 2.96 MG/DL (0.70-1.30); GLOMERULAR FILTRATION RATE 23.5 (>56); MAGNESIUM LEVEL 2.2 MG/DL (1.8-2.4)
[2021-06-20] MEDS ORDERED: PHENYLEPHRINE HCL INJ 50 MG in D5W 495 ML IV SCH (21:30)
[2021-06-21] VITALS (58 sets, daily range): BP systolic 83–130; BP diastolic 50–83
[2021-06-21] MEDS: IPRATROPIUM 0.5MG/ALBUTEROL 2.5MG INH SOL UD 3ML (DUONEB) NEB SCH ×4 (00:46→20:00)
[2021-06-21] MEDS: MIDAZOLAM INJ 2MG/2ML VIAL (J2250 PER 1MG) IV PRN (01:14)
[2021-06-21] MEDS: methylPREDNISolone 125MG 2ML VIAL IV SCH ×2 (02:10→14:40)
[2021-06-21] MEDS: CEFEPIME HCL 2 GM in D5W MINI-BAG PLUS 50 ML IV SCH ×2 (04:09→17:15)
[2021-06-21] MEDS: LEVOTHYROXINE 25MCG TABLET (0.025MG) PO SCH (05:02)
[2021-06-21 05:57] LABS: BASO % 0.1 % (0.0-1.0); EOS % 0.1 % (0.0-3.0); HEMATOCRIT 29.4 % (42.0-52.0); HEMOGLOBIN 9.7 g/dl (13.5-17.5); LYMPH % 0.3 % (24.0-44.0); MEAN CORPUSCULAR HEMOGLOBIN 28.4 pg (27.0-33.0); MEAN CORPUSCULAR VOLUME 86.2 fl (80.0-96.0); MONO # 0.5 10^3/uL (0.0-0.8); MONO % 4.5 % (2.0-8.0); NEUTROPHILS % 94.4 % (36.0-66.0); PLATELET COUNT, AUTOMATED 198 10^3/uL (150-450); RED BLOOD COUNT 3.41 10^6/uL (4.30-6.10); WHITE BLOOD COUNT 11.6 10^3/uL (4.0-10.0)
[2021-06-21 06:16] LABS: ALBUMIN 2.6 GM/DL (3.2-5.2); CALCIUM LEVEL 8.2 MG/DL (8.5-10.1); CREATININE FOR GFR 3.09 MG/DL (0.70-1.30); GLOMERULAR FILTRATION RATE 22.4 (>56); POTASSIUM SERUM 4.7 MEQ/L (3.5-5.1); TOTAL PROTEIN 6.1 GM/DL (6.4-8.2)
[2021-06-21] MEDS: HEPARIN DRIP 25,000 UNITS in IV 1 EA IV SCH (06:38)
[2021-06-21] MEDS: BUDESONIDE 0.5 MG/2 ML INHALATION SUSPENSION INH SCH ×2 (07:16→20:00)
[2021-06-21] MEDS: TOPIRAMATE (TopAMAX) 25 MG TAB PO SCH (09:00)
[2021-06-21] MEDS: PANTOPRAZOLE 40MG VIAL (C9113 PER 1) IV SCH (09:00)
[2021-06-21] MEDS: ASPIRIN 81 MG CHEW TABLET PO SCH (09:00)
[2021-06-21] MEDS: AMIODARONE 200 MG TAB (PACERONE) PO SCH (09:00)
[2021-06-21] MEDS: CHLORHEXIDINE GLUCONATE 0.12 % 15ML UDC (PERIDEX ORAL RINSE) MT SCH ×2 (09:00→20:46)
[2021-06-21] MEDS ORDERED: FUROSEMIDE 100MG/10ML VIAL (J1940) IV ONE (12:00)
[2021-06-21 15:33] LABS: CALCIUM LEVEL 7.8 MG/DL (8.5-10.1); CREATININE FOR GFR 3.28 MG/DL (0.70-1.30); GLOMERULAR FILTRATION RATE 20.9 (>56); POTASSIUM SERUM 4.4 MEQ/L (3.5-5.1)
[2021-06-21] MEDS: ATORVASTATIN 20 MG TAB PO SCH (20:46)
[2021-06-22] VITALS (30 sets, daily range): BP systolic 88–128; BP diastolic 53–75
[2021-06-22] MEDS: IPRATROPIUM 0.5MG/ALBUTEROL 2.5MG INH SOL UD 3ML (DUONEB) NEB SCH ×4 (00:49→19:31)
[2021-06-22] MEDS: methylPREDNISolone 125MG 2ML VIAL IV SCH ×2 (03:02→15:10)
[2021-06-22 03:59] LABS: BASO % 0.1 % (0.0-1.0); HEMATOCRIT 29.1 % (42.0-52.0); HEMOGLOBIN 9.5 g/dl (13.5-17.5); LYMPH # 0.1 10^3/uL (1.5-5.0); LYMPH % 0.5 % (24.0-44.0); MEAN CORPUSCULAR HEMOGLOBIN 28.1 pg (27.0-33.0); MEAN CORPUSCULAR HGB CONC 32.6 g/dl (32.0-36.5); MEAN CORPUSCULAR VOLUME 86.1 fl (80.0-96.0); MONO % 6.4 % (2.0-8.0); NEUTROPHILS # 14.1 10^3/uL (1.5-8.5); NEUTROPHILS % 92.3 % (36.0-66.0); PLATELET COUNT, AUTOMATED 230 10^3/uL (150-450); RED BLOOD COUNT 3.38 10^6/uL (4.30-6.10); WHITE BLOOD COUNT 15.3 10^3/uL (4.0-10.0)
[2021-06-22] MEDS: CEFEPIME HCL 2 GM in D5W MINI-BAG PLUS 50 ML IV SCH (04:11)
[2021-06-22 04:34] LABS: ALBUMIN 2.7 GM/DL (3.2-5.2); BILIRUBIN,TOTAL 0.8 MG/DL (0.2-1.0); CALCIUM LEVEL 7.8 MG/DL (8.5-10.1); CREATININE FOR GFR 3.56 MG/DL (0.70-1.30); POTASSIUM SERUM 4.9 MEQ/L (3.5-5.1); TOTAL PROTEIN 6.2 GM/DL (6.4-8.2)
[2021-06-22] MEDS: LEVOTHYROXINE 25MCG TABLET (0.025MG) PO SCH (05:54)
[2021-06-22] MEDS: BUDESONIDE 0.5 MG/2 ML INHALATION SUSPENSION INH SCH ×2 (07:35→19:31)
[2021-06-22] MEDS: TOPIRAMATE (TopAMAX) 25 MG TAB PO SCH (08:03)
[2021-06-22] MEDS: PANTOPRAZOLE 40MG VIAL (C9113 PER 1) IV SCH (08:03)
[2021-06-22] MEDS: ASPIRIN 81 MG CHEW TABLET PO SCH (08:03)
[2021-06-22] MEDS: AMIODARONE 200 MG TAB (PACERONE) PO SCH (08:04)
[2021-06-22] MEDS: CHLORHEXIDINE GLUCONATE 0.12 % 15ML UDC (PERIDEX ORAL RINSE) MT SCH ×2 (08:34→20:00)
[2021-06-22] MEDS ORDERED: BUMETANIDE 1 MG/4 ML INJ (S0171) IV ONE (10:00)
[2021-06-22] MEDS: HEPARIN DRIP 25,000 UNITS in IV 1 EA IV SCH (10:03)
[2021-06-22] MEDS: fentaNYL 100 MCG/2 ML INJECTION IV PRN ×3 (11:34→20:45)
[2021-06-22] MEDS: MIDAZOLAM INJ 2MG/2ML VIAL (J2250 PER 1MG) IV PRN ×2 (15:10→20:00)
[2021-06-22 16:12] LABS: BODY FLUID CULTURE Not indicated. (.); LEGIONELLA ANTIGEN URINE Negative (Negative); ORGANISM ID Not indicated. (.); SPECIMEN SOURCE Urine (.); URINE STREP PNEUMONIAE ANTIGEN Negative (Negative)
[2021-06-22 16:34] LABS: INR 1.4; PROTHROMBIN TIME 17.6 SECONDS (12.7-14.5)
[2021-06-22 17:20] LABS: PARTIAL THROMBOPLASTIN TIME 153.8 SECONDS (25.9-37.0)
[2021-06-22] MEDS: ATORVASTATIN 20 MG TAB PO SCH (20:00)
[2021-06-22] MEDS: LEVEMIR (INSULIN DETEMIR) 1 UNITS/0.01ML SC SCH (20:00)
[2021-06-23] VITALS (24 sets, daily range): BP systolic 88–111; BP diastolic 51–64
[2021-06-23] MEDS: IPRATROPIUM 0.5MG/ALBUTEROL 2.5MG INH SOL UD 3ML (DUONEB) NEB SCH ×4 (01:55→19:25)
[2021-06-23 02:36] LABS: INR 1.34
[2021-06-23 02:37] LABS: PARTIAL THROMBOPLASTIN TIME 59.2 SECONDS (25.9-37.0)
[2021-06-23] MEDS: CEFEPIME HCL 1 GM in D5W MINI-BAG PLUS 50 ML IV SCH ×2 (03:21→16:14)
[2021-06-23] MEDS: methylPREDNISolone 125MG 2ML VIAL IV SCH ×2 (03:21→15:44)
[2021-06-23] MEDS: LEVOTHYROXINE 25MCG TABLET (0.025MG) PO SCH (06:07)
[2021-06-23 06:12] LABS: BASO % 0.1 % (0.0-1.0); HEMATOCRIT 23.1 % (42.0-52.0); HEMOGLOBIN 7.6 g/dl (13.5-17.5); LYMPH # 0.1 10^3/uL (1.5-5.0); LYMPH % 0.5 % (24.0-44.0); MEAN CORPUSCULAR HEMOGLOBIN 28.9 pg (27.0-33.0); MEAN CORPUSCULAR HGB CONC 32.9 g/dl (32.0-36.5); MEAN CORPUSCULAR VOLUME 87.8 fl (80.0-96.0); MONO # 0.8 10^3/uL (0.0-0.8); MONO % 5.1 % (2.0-8.0); NEUTROPHILS # 14.1 10^3/uL (1.5-8.5); PLATELET COUNT, AUTOMATED 204 10^3/uL (150-450); RED BLOOD COUNT 2.63 10^6/uL (4.30-6.10); WHITE BLOOD COUNT 15.1 10^3/uL (4.0-10.0)
[2021-06-23 06:47] LABS: ALBUMIN 2.5 GM/DL (3.2-5.2); BILIRUBIN,TOTAL 0.7 MG/DL (0.2-1.0); CALCIUM LEVEL 7.7 MG/DL (8.5-10.1); CREATININE FOR GFR 3.92 MG/DL (0.70-1.30); POTASSIUM SERUM 5.1 MEQ/L (3.5-5.1); TOTAL PROTEIN 5.4 GM/DL (6.4-8.2)
[2021-06-23] MEDS: HEPARIN DRIP 25,000 UNITS in IV 1 EA IV SCH (07:39)
[2021-06-23] MEDS: BUDESONIDE 0.5 MG/2 ML INHALATION SUSPENSION INH SCH ×2 (07:51→19:25)
[2021-06-23] MEDS: AMIODARONE 200 MG TAB (PACERONE) PO SCH (08:06)
[2021-06-23] MEDS: CHLORHEXIDINE GLUCONATE 0.12 % 15ML UDC (PERIDEX ORAL RINSE) MT SCH ×2 (08:06→20:21)
[2021-06-23] MEDS: PANTOPRAZOLE 40MG VIAL (C9113 PER 1) IV SCH (08:06)
[2021-06-23] MEDS: ASPIRIN 81 MG CHEW TABLET PO SCH (08:07)
[2021-06-23] MEDS: TOPIRAMATE (TopAMAX) 25 MG TAB PO SCH (08:07)
[2021-06-23] MEDS: fentaNYL 100 MCG/2 ML INJECTION IV PRN ×2 (08:09→16:53)
[2021-06-23] MEDS: MIRALAX *UNIT DOSE* 17GM PACKET GT SCH ×2 (10:00→20:21)
[2021-06-23] MEDS: SENNA 8.6 MG TAB (SENOKOT) GT SCH ×2 (10:00→20:21)
[2021-06-23 10:17] LABS: HEMATOCRIT 22.8 % (42.0-52.0); HEMOGLOBIN 7.4 g/dl (13.5-17.5); MEAN CORPUSCULAR HEMOGLOBIN 28.7 pg (27.0-33.0); MEAN CORPUSCULAR HGB CONC 32.5 g/dl (32.0-36.5); MEAN CORPUSCULAR VOLUME 88.4 fl (80.0-96.0); PLATELET COUNT, AUTOMATED 210 10^3/uL (150-450); RED BLOOD COUNT 2.58 10^6/uL (4.30-6.10)
[2021-06-23 10:27] LABS: INR 1.3; PROTHROMBIN TIME 16.6 SECONDS (12.7-14.5)
[2021-06-23 10:29] LABS: PARTIAL THROMBOPLASTIN TIME 63.2 SECONDS (25.9-37.0)
[2021-06-23 16:57] LABS: INR 1.31; PROTHROMBIN TIME 16.7 SECONDS (12.7-14.5)
[2021-06-23 16:58] LABS: PARTIAL THROMBOPLASTIN TIME 81.9 SECONDS (25.9-37.0)
[2021-06-23] MEDS: ATORVASTATIN 20 MG TAB PO SCH (20:20)
[2021-06-23] MEDS: LEVEMIR (INSULIN DETEMIR) 1 UNITS/0.01ML SC SCH (20:21)
[2021-06-23 23:02] LABS: INR 1.34
[2021-06-23 23:04] LABS: PARTIAL THROMBOPLASTIN TIME 82.5 SECONDS (25.9-37.0)
[2021-06-24] VITALS (76 sets, daily range): BP systolic 77–105; BP diastolic 42–62
[2021-06-24] MEDS: IPRATROPIUM 0.5MG/ALBUTEROL 2.5MG INH SOL UD 3ML (DUONEB) NEB SCH ×4 (00:39→19:31)
[2021-06-24] MEDS: MIDAZOLAM INJ 2MG/2ML VIAL (J2250 PER 1MG) IV PRN ×5 (01:40→20:14)
[2021-06-24] MEDS: fentaNYL 100 MCG/2 ML INJECTION IV PRN ×3 (01:41→15:02)
[2021-06-24] MEDS: CEFEPIME HCL 1 GM in D5W MINI-BAG PLUS 50 ML IV SCH (04:00)
[2021-06-24] MEDS: methylPREDNISolone 125MG 2ML VIAL IV SCH (04:00)
[2021-06-24] MEDS: HEPARIN DRIP 25,000 UNITS in IV 1 EA IV SCH (04:08)
[2021-06-24 05:55] LABS: BASO % 0.1 % (0.0-1.0); LYMPH # 0.1 10^3/uL (1.5-5.0); LYMPH % 0.5 % (24.0-44.0); MEAN CORPUSCULAR HEMOGLOBIN 28.6 pg (27.0-33.0); MEAN CORPUSCULAR HGB CONC 32.3 g/dl (32.0-36.5); MEAN CORPUSCULAR VOLUME 88.6 fl (80.0-96.0); MONO % 6.8 % (2.0-8.0); NEUTROPHILS # 21.1 10^3/uL (1.5-8.5); NEUTROPHILS % 89.7 % (36.0-66.0); PLATELET COUNT, AUTOMATED 247 10^3/uL (150-450); WHITE BLOOD COUNT 23.6 10^3/uL (4.0-10.0)
[2021-06-24 05:59] LABS: HEMATOCRIT 19.5 % (42.0-52.0); HEMOGLOBIN 6.3 g/dl (13.5-17.5); MONO # 1.6 10^3/uL (0.0-0.8)
[2021-06-24] MEDS: LEVOTHYROXINE 25MCG TABLET (0.025MG) PO SCH (06:00)
[2021-06-24 06:18] LABS: ALBUMIN 2.4 GM/DL (3.2-5.2); BILIRUBIN,TOTAL 0.7 MG/DL (0.2-1.0); CALCIUM LEVEL 7.7 MG/DL (8.5-10.1); CREATININE FOR GFR 4.14 MG/DL (0.70-1.30); POTASSIUM SERUM 5.7 MEQ/L (3.5-5.1); TOTAL PROTEIN 5.4 GM/DL (6.4-8.2)
[2021-06-24] MEDS: BUDESONIDE 0.5 MG/2 ML INHALATION SUSPENSION INH SCH ×2 (07:18→19:31)
[2021-06-24] MEDS: CHLORHEXIDINE GLUCONATE 0.12 % 15ML UDC (PERIDEX ORAL RINSE) MT SCH (08:43)
[2021-06-24] MEDS: SENNA 8.6 MG TAB (SENOKOT) GT SCH (08:44)
[2021-06-24] MEDS: MIRALAX *UNIT DOSE* 17GM PACKET GT SCH (08:44)
[2021-06-24] MEDS: ASPIRIN 81 MG CHEW TABLET PO SCH ×2 (08:44→10:39)
[2021-06-24] MEDS: TOPIRAMATE (TopAMAX) 25 MG TAB PO SCH (08:44)
[2021-06-24] MEDS: AMIODARONE 200 MG TAB (PACERONE) PO SCH (08:44)
[2021-06-24] MEDS: PANTOPRAZOLE 40MG VIAL (C9113 PER 1) IV SCH (08:45)
[2021-06-24] MEDS ORDERED: SOD POLYSTYRENE SULFONATE SUSP 15 GM/60 ML UD PO ONE (09:50)
[2021-06-24] MEDS ORDERED: NOREPINEPHRINE BITARTRATE 8 MG in D5W 492 ML IV SCH ×2 (10:40→23:00)
[2021-06-24] MEDS ORDERED: NOREPINEPHRINE 4 MG/4 ML AMP As Ordered ONE (10:45)
[2021-06-24] MEDS ORDERED: DEXTROSE 50% 50 ML SYRINGE IV PRN (11:10)
[2021-06-24] MEDS ORDERED: GLUCAGON INJ 1MG VIAL SC PRN (11:10)
[2021-06-24] MEDS ORDERED: GLUCOSE 4GM CHEW TABLET PO PRN (11:10)
[2021-06-24] MEDS ORDERED: PATIROMER SORBITEX CALCIUM 8.4 GM POWDER PACKET (VELTASSA) PO SCH (12:00)
[2021-06-24] MEDS: HumaLOG INSULIN (NovoLOG) PER UNIT SC SCH ×2 (13:00→18:50)
[2021-06-24] MEDS ORDERED: VASOPRESSIN INJ 20 UNITS in NS 499 ML IV SCH (15:00)
[2021-06-24] MEDS ORDERED: methylPREDNISolone 40MG 1ML VIAL IV SCH (15:00)
[2021-06-24] MEDS ORDERED: **hydrALAZINE HCL** 25 MG TAB PO SCH (16:00)
[2021-06-24] MEDS ORDERED: NOREPINEPHRINE BITARTRATE 16 MG in D5W 484 ML IV SCH ×2 (17:30→18:00)
[2021-06-24] MEDS ORDERED: NOREPINEPHRINE BITARTRATE 16 MG in D5W 492 ML IV SCH (18:00)
== END 2021-06-24 22:00 | disposition expired | DRG 710 ==
LOC: M ICU 01:00 → EEVIPCON 01:00
PROVIDERS: ADMIT Internal Medicine Critical Care Medicine; ATTEND Internal Medicine Pulmonary Disease
PROC: 0B9M8ZZ Drainage of Bilateral Lungs, Via Natural or Artificial Opening Endoscopic (ICD-10-PCS; principal; 2021-06-19)
PROC: 5A1955Z Respiratory Ventilation, Greater than 96 Consecutive Hours (ICD-10-PCS; 2021-06-19)
PROC: 30233N1 Transfusion of Nonautologous Red Blood Cells into Peripheral Vein, Percutaneous Approach (ICD-10-PCS; 2021-06-24)
DX: A41.9 Sepsis, unspecified organism (principal); I46.8 Cardiac arrest due to other underlying condition; K72.00 Acute and subacute hepatic failure without coma; N17.0 Acute kidney failure with tubular necrosis; J18.9 Pneumonia, unspecified organism; J81.1 Chronic pulmonary edema; I11.0 Hypertensive heart disease with heart failure; J96.01 Acute respiratory failure with hypoxia; R65.21 Severe sepsis with septic shock; G93.41 Metabolic encephalopathy; J96.02 Acute respiratory failure with hypercapnia; R57.9 Shock, unspecified; I50.22 Chronic systolic (congestive) heart failure; J44.0 Chronic obstructive pulmonary disease with (acute) lower respiratory infection; J44.1 Chronic obstructive pulmonary disease with (acute) exacerbation; G93.1 Anoxic brain damage, not elsewhere classified; I47.2 Ventricular tachycardia; E87.3 Alkalosis; I42.0 Dilated cardiomyopathy; I48.91 Unspecified atrial fibrillation; Z66 Do not resuscitate; E03.9 Hypothyroidism, unspecified; E11.9 Type 2 diabetes mellitus without complications; D64.9 Anemia, unspecified; E78.5 Hyperlipidemia, unspecified; Z95.810 Presence of automatic (implantable) cardiac defibrillator; Z79.82 Long term (current) use of aspirin; Z79.899 Other long term (current) drug therapy